=== PATIENT | male | born 1945 | race Caucasian/White ===

== ENCOUNTER 2017-07-23 18:16 | Inpatient (IN) ==
[2017-07-23] MEDS ORDERED: Acetaminophen 325 MG TABLET PO PRN (22:52)
--- NOTE | 2017-07-23 23:04 | Internal Med History&Physical ---
Date of Encounter: 07/23/17 Time of Encounter: 22:00 Assessment and Plan (1) CAD (coronary artery disease) Current visit: Yes Status: Acute Stable, no chest pain, s/p stent. Qualifiers: Coronary Disease-Associated Artery/Lesion type: [place] artery [place] vs. transplanted heart: [place] heart Associated angina: without angina Qualified Code(s): I25.10 - Atherosclerotic heart disease of [place] coronary artery without angina pectoris (2) DVT prophylaxis Current visit: Yes Status: Acute Heparin SC. (3) Carbon monoxide poisoning Current visit: No Status: Acute Will place pt on high flow O2 mask and check Carboxyhemoglobin in AM. Pt is AAO x3, no neuro deficits now. Qualifiers: Encounter type: initial encounter Injury intent: accidental or unintentional Qualified Code(s): T58.91XA - Toxic effect of carbon monoxide from unspecified source, accidental (unintentional), initial encounter (4) Syncope Current visit: No Status: Acute Etiology is undetermined. - Chech Flu test to r/o flu. - Continuous cardiac monitoring to r/o arrhythmia. - Echo and duplex carotid. - Orthostatic vitals. Qualifiers: Syncope type: unspecified Qualified Code(s): R55 - Syncope and collapse Internal Medicine - H&P: HPI Chief complaint: syncope Admitted From: Home Plans for Post Hospital Care: Home History of present illness: Mr. Ballard is a 72 year old male with Hx of CAD s/p stent transferred from [place] [facility] for syncope. Pt said he doesn't feels good in recent several days. He has runny nose, mild nonproductive cough. No fever. He has lightheaded and dizziness as well. This morning, when he getup to drink water, he felt dizziness and passed out. He quickly wake up and get up from floor. Denies head/ neck injury or other body injury. Pt use gas heating because he feels cold. Pt walked around two miles to ER and had workup. Head CT unremarkable. CXR and EKG unremarkable. Pt was found mild elevated carboxyhemoglobin at 5.4%. He was considered CO intoxicity and hyperbarric O2 physician was consulted by [facility], no indication for hyperbaric therapy per consult. Pt was tranferred to our hospital for syncope. Pt denies chest pain, SOB, or nausea when I saw him. Past Med Surg Social Fam HX - Past Medical History Medical history: myocardial infarction Psychiatric history: no psych history - Social History Smoking Status: Never smoker Smokeless Tobacco Status: No Alcohol use: none Drug use: none - Family History Father Living Status: Hx Family Cardiac Disorders: Yes (heart attack) Internal Medicine - H&P: Meds No Known Home Drugs 07/23/17 [History] 3 Allergy/AdvReac Type Severity Reaction Status Date / Time No Known Allergies Allergy Verified 07/23/17 13:11 All Systems PM: A 10-system review of systems was performed and is negative for pertinent findings except as documented above in the HPI. - Constitutional Vitals: Temp Pulse Resp BP Pulse Ox 98.6 F 70 18 150/88 97 07/23/17 20:31 07/23/17 20:31 07/23/17 20:31 07/23/17 20:31 07/23/17 20:31 General appearance: Present: A&O X 3, no acute distress, answers questions appropriately - Head Head exam: Present: atraumatic, normocephalic - Eye Eye exam: Present: PERRL, conjuntiva pink, sclera anicteric Pupils: Present: PERRL - Neck Neck exam general surgery: Present: supple, trachea midline. Absent: lymphadenopathy - Respiratory Respiratory exam: Present: CTAB. Absent: accessory muscle use, rales, rhonchi, wheezes - Cardiovascular Cardiovascular exam: Present: RRR, +S1, +S2. Absent: diastolic murmur, gallop, rubs, systolic murmur - GI/Abdominal GI/Abdominal exam: Present: normal bowel sounds, soft, no peritoneal signs. Absent: distended, tenderness - Extremities Exam Extremities exam: Present: warm, radial pulses palpable and symmetrical. Absent : calf tenderness, cyanotic, pedal edema - Neurological Exam Neurological exam: Present: CN II-XII intact, oriented X3, no focal deficits. Absent: pronater drift, facial droop, speech deficit - Skin Skin exam: Present: dry, intact Internal Med - H&P Results - EKG Data -: EKG Interpreted by Myself EKG shows normal: sinus rhythm Rate: normal
[2017-07-24] MEDS: *HR* Heparin 5,000 UNIT/ML VIAL SQ SCH (05:21)
[2017-07-24 05:48] LABS: Basophils % 0.6 %; Eosinophils # 0.1 K/mcL (0.0-0.6); Eosinophils % 2.2 %; Hematocrit 40.7 % (37.5-50.1); Immature Granulocytes % 0.9 % (0-4); Lymphocytes # 1.6 K/mcL (0.6-4.6); Lymphocytes % 30.2 %; Mean Corpuscular HGB Conc 34.4 g/dL (31.6-35.5); Mean Corpuscular Hemoglobin 31.3 pg (28.0-33.3); Mean Corpuscular Volume 90.8 fL (83.0-100.0); Mean Platelet Volume 9.3 fL (9.4-12.4); Monocytes # 0.5 K/mcL (0.0-1.3); Monocytes % 9.1 %; Neutrophils # 3.1 K/mcL (1.6-8.9); Platelet Count 170 K/mcL (140-400); Red Blood Count 4.48 M/mcL (4.19-5.50); Red Cell Distribution Width 12.3 % (11.5-14.5)
[2017-07-24 06:12] LABS: BUN/Creatinine Ratio 12 (6-26); Blood Urea Nitrogen 12 mg/dL (8-23); Calcium 9.1 mg/dL (8.6-10.3); Carbon Dioxide 26 mEq/L (23-29); Chloride 110 mEq/L (98-107); Glucose 91 mg/dL (70-105); Osmolality,Calculated 291 (280-300); Potassium 4.1 mEq/L (3.5-5.1); Sodium 141 mEq/L (136-145); eGFR For African Americans > 60 (> 60); eGFR For Non-African Americans > 60 (> 60)
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
[2017-07-25] MEDS: *HR* Heparin 5,000 UNIT/ML VIAL SQ SCH ×3 (06:10→19:52)
--- NOTE | 2017-07-25 13:04 | Internal Med Progress Note ---
Date of Encounter: 07/25/17 Time of Encounter: 09:45 - Assessment and plan (1) Carbon monoxide poisoning Current Visit: Yes Status: Acute Assessment and plan: suspected. Presented after syncopal episode. Patient reports using homemade kerosene heaters/lamps as heat source. OSH head CT non-acute. Bilateral carotids as noted below. OSH Carboxyhemoglobin level 5.4. After high flow oxygen overnight, Carboxyhemoglobin down to 1.9. This may have contributed to syncopal episode. Orthostatic BPs ordered Qualifiers: Encounter type: initial encounter Injury intent: accidental or unintentional Qualified Code(s): T58.91XA - Toxic effect of carbon monoxide from unspecified source, accidental (unintentional), initial encounter (2) PTSD (post-traumatic stress disorder) Current Visit: Yes Status: Chronic Assessment and plan: per hx; reports vivid flashbacks that required mental health hospitalization in the past. Appears paranoid and consumed with thoughts of a 9-year-old boy in his brother poisoning his well by contaminating with animals and human waste. Does not follow with psychiatry outpatient. Not on any psychiatric, antidepressants, anti-anxiety or mood stabilizing medications. Psychiatry consulted (3) CAD (coronary artery disease) Current Visit: Yes Status: Acute Assessment and plan: per hx. Patient reports remote PCI. Not on ASA at home. Denies CP. Start ASA, lipid panel, Hgb A1c pending Qualifiers: Coronary Disease-Associated Artery/Lesion type: [place] artery [place] vs. transplanted heart: [place] heart Associated angina: without angina Qualified Code(s): I25.10 - Atherosclerotic heart disease of [place] coronary artery without angina pectoris (4) DVT prophylaxis Current Visit: Yes Status: Acute Assessment and plan: heparin - Subjective Interval history: Seen and examined at bedside, patient is new to me. Information obtained from chart review and patient report. Patient says he feels better; still a little lightheaded and dizzy at times but overall better. He says he does not have gas , heat or running water at his apartment. He also expresses concern over that he is being poisoned. Does not feel safe going home but says he has no choice. - Constitutional Vitals: Temp Pulse Resp BP Pulse Ox 97.5 F L 80 18 107/68 94 07/25/17 10:47 07/25/17 10:47 07/25/17 10:47 07/25/17 10:47 07/25/17 10:47 General appearance: Present: cooperative, A&O X 3, pleasant, no acute distress, answers questions appropriately - Head Head exam: Present: atraumatic, normocephalic - Eye Eye exam: Present: PERRL, conjuntiva pink, sclera anicteric Pupils: Present: PERRL - Neck Neck exam general surgery: Present: supple, trachea midline. Absent: lymphadenopathy - Respiratory Respiratory exam: Present: CTAB. Absent: accessory muscle use, rales, rhonchi, wheezes - Cardiovascular Cardiovascular exam: Present: RRR, +S1, +S2. Absent: diastolic murmur, gallop, rubs, systolic murmur - GI/Abdominal GI/Abdominal exam: Present: normal bowel sounds, soft, no peritoneal signs. Absent: distended, tenderness - Extremities Exam Extremities exam: Present: warm, radial pulses palpable and symmetrical. Absent : calf tenderness, cyanotic, pedal edema - Neurological Exam Neurological exam: Present: CN II-XII intact, oriented X3, no focal deficits. Absent: pronater drift, facial droop, speech deficit - Skin Skin exam: Present: dry, intact Internal Medicine: Result - Labs CBC & Chem 7: 07/24/17 05:32 07/24/17 05:32 Consult Discharge Plan - Plan [facility]errals: [facility] [Primary Care Provider] -
[2017-07-25] MEDS: Aspirin 81 MG TAB.CHEW PO SCH (19:52)
[2017-07-26] MEDS: *HR* Heparin 5,000 UNIT/ML VIAL SQ SCH ×2 (05:31→17:22)
[2017-07-26 05:58] LABS: Chol/HDL Ratio 4.7 (0-4.9)
[2017-07-26] MEDS: Aspirin 81 MG TAB.CHEW PO SCH (09:17)
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
[2017-07-27] MEDS: *HR* Heparin 5,000 UNIT/ML VIAL SQ SCH ×2 (05:52→17:59)
[2017-07-27] MEDS: Aspirin 81 MG TAB.CHEW PO SCH (09:47)
--- NOTE | 2017-07-27 12:43 | Consult Note ---
Date of Encounter: 07/27/17 Time of Encounter: 10:30 Assessment & Recommendation (1) Schizophrenia Current visit: Yes Status: Acute Assessment & Recommendation: Patient was uncooperative in being able to get a full detailed assessment. From what he did tell me, he has paranoid thoughts about his neighbors and that they are defecating and throwing animals in his well in an attempt to poison him to take his land. He has never seen anyone do this, but has found opossums and ground hogs in his well, and also has feces floating on the top of the well water. He refused to sign paperwork to get [facility]. He refused to sign paperwork to contact his sons or other family members for collateral information. He has refused to sign all paperwork for the treatment team of physicians. Schizophrenia, paranoid type would be a RULE OUT diagnosis till further information could be gathered. History of Present Illness Patient: new to practice Requesting Physician: Darlene Birmingham CNP Reason for consult: Paranoia History of present illness: Mr. Ballard is a 72 year old male that psychiatric services was requested to consult on secondary to his paranoia non-cooperativeness with his medical treatment team. I initially stopped by to consult on the patient on July 26. When I knocked on the door and entered his room, he was sitting in a side chair with a towel wrapped around him. I apologize for disturbing him. He stated it was fine, that he had just finished getting out of the shower and was drying off and trying to cool off. I told him I would come back. I returned approximately an hour and a half later. He was still sitting in the chair with the towel wrapped around himself. Nursing told me that they had encouraged him to get dressed, and if not to at least close the door. (He had the door open previously, walking around only in his underwear.) I told him I would check in with him some other time after I explained who I was and why I was there to see him. When I followed up the next day, I sat down and started talking to him further about his career and history. 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 He told me that he received an honorable discharge. He had told me the previous day that he had received mental health services through the after the war to talk and process things; PTSD. No other mental health treatment. I asked him about the statement that he had made to one of his treatment team clinicians about his neighbors trying to poison him and his brother breaking into his house and stealing from him. He explained to me that everybody wanted his land it was. There was some of the most beautiful land and [facility] had use for miles around. He states that his neighbors are trying to poison him because he would not sell it to them. He stated they he had been offered between $70,000 to $125 ,000 for his land and that he had turned him down. He told me that they put possums and groundhogs and then "take a crap in well" in an attempt to poison him. "they are trying to poison me to get me off my land." When I asked him if he had ever seen anybody do that, he stated "now, I do not have to see them to know what they are doing". As I started to ask him another question, he told me that "You did not start out on a good note with me. We are done here." I started to ask him another question or why he thought that I was offensive, and he said nothing further. He just watched his television. I thanked him for his time and I left CC: Darlene Birmingham, MIKE Past Med Surg Social Fam HX - Past Medical History Medical history: myocardial infarction - Past Psychiatric History Psychiatric history: Reports: PTSD, other (Patient told me [facility] Family psychiatric history: Unknown Family History of Suicide: Unknown - Social History Smoking Status: Never smoker Smokeless Tobacco Status: No Alcohol use: none Drug use: none Occupational status: previously employed Current living situation: Home - Independent Activity Level: Independent ambulation Recent Out of Country Travel Within the Last 8 Weeks: No Exposure or Possible Exposure to Illness During Travel: No - Family History Father Living Status: Hx Family Cardiac Disorders: Yes (heart attack) Medications & Allergies No Known Home Drugs 07/23/17 [History] 3 Allergy/AdvReac Type Severity Reaction Status Date / Time No Known Allergies Allergy Verified 07/23/17 13:11 Mental Status Exam Patient orientation: Yes Person, Yes Time, Yes Place Level of alertness: Alert Patient appearance: Well-nourished Additional observations: Nursing reported that he walks around his room in his underwear and nothing else as the door is open. When I first went to talk to him, he was sitting in a chair to the side of his bed with only a towel wrapped around him. He told me he had just taken a shower and was drying off. I told him I would be back later. I returned 1.5 hours later and he was still sitting in the chair with the towel wrapped around him and no other clothing on. Behavior: nervous, uncooperative, guarded, suspicious Psychomotor activity: Normal Eye contact: Maintains Eye Contact Mood description: Anxious Affect description: constricted Speech pattern: Normal rate, Normal rhythm, Normal tone Speech volume: Normal, Loud (loud volume when I started asking about his previous mental health treatemtn and history) Thought process: Evasive Thought content: Yes Preoccupation, Yes Paranoid delusion Attention span: Capable of Focused Attention Memory description: Grossly Intact (Unable to test fully but when he answered a question, he did not appear to struggle thinkng of the response.) Patient reliability: Not Reliable Historian Intelligence estimate: Average Judgment: Poor Insight: Minimal Results - Vital Signs Vital signs: Temp Pulse Resp BP Pulse Ox 99.1 F 99 18 135/82 92 07/27/17 11:34 07/27/17 11:34 07/27/17 11:34 07/27/17 11:34 07/27/17 11:34 - Labs Labs: Laboratory Last Values WBC 5.4 K/mcL (4.3-11.1) 07/24/17 05:32 RBC 4.48 M/mcL (4.19-5.50) 07/24/17 05:32 Hgb 14.0 g/dL (12.9-16.9) 07/24/17 05:32 Hct 40.7 % (37.5-50.1) 07/24/17 05:32 MCV 90.8 fL (83.0-100.0) 07/24/17 05:32 MCH 31.3 pg (28.0-33.3) 07/24/17 05:32 MCHC 34.4 g/dL (31.6-35.5) 07/24/17 05:32 RDW 12.3 % (11.5-14.5) 07/24/17 05:32 Plt Count 170 K/mcL (140-400) 07/24/17 05:32 MPV 9.3 fL (9.4-12.4) L 07/24/17 05:32 Immature Gran % 0.9 % (0-4) 07/24/17 05:32 Seg Neutrophils % 57.0 % 07/24/17 05:32 Lymphocytes % 30.2 % 07/24/17 05:32 Monocytes % 9.1 % 07/24/17 05:32 Eosinophils % 2.2 % 07/24/17 05:32 Basophils % 0.6 % 07/24/17 05:32 Neutrophils # 3.1 K/mcL (1.6-8.9) 07/24/17 05:32 Lymphocytes # 1.6 K/mcL (0.6-4.6) 07/24/17 05:32 Monocytes # 0.5 K/mcL (0.0-1.3) 07/24/17 05:32 Eosinophils # 0.1 K/mcL (0.0-0.6) 07/24/17 05:32 Basophils # 0.0 K/mcL (0.0-0.2) 07/24/17 05:32 Carboxyhemoglobin 1.9 % (0-5) 07/24/17 05:32 Sodium 141 mEq/L (136-145) 07/24/17 05:32 Potassium 4.1 mEq/L (3.5-5.1) 07/24/17 05:32 Chloride 110 mEq/L (98-107) H 07/24/17 05:32 Carbon Dioxide 26 mEq/L (23-29) 07/24/17 05:32 BUN 12 mg/dL (8-23) 07/24/17 05:32 Creatinine 1.02 mg/dL (0.70-1.30) 07/24/17 05:32 Est GFR ( Amer) > 60 (> 60) 07/24/17 05:32 Est GFR (Non-Af Amer) > 60 (> 60) 07/24/17 05:32 BUN/Creatinine Ratio 12 (6-26) 07/24/17 05:32 Glucose 91 mg/dL (70-105) 07/24/17 05:32 POC Glucose 128 (58-89) H 07/26/17 20:28 Est Mean Plasma Glucose 97 mg/dl 07/26/17 03:31 Hemoglobin A1c 5.0 % (-5.6) 07/26/17 03:31 Calculated Osmolality 291 (280-300) 07/24/17 05:32 Calcium 9.1 mg/dL (8.6-10.3) 07/24/17 05:32 Magnesium 2.0 mg/dL (1.6-2.6) 07/24/17 05:32 Triglycerides 88 mg/dL (< 150) 07/26/17 03:31 Cholesterol 146 mg/dL (< 200) 07/26/17 03:31 LDL Cholesterol, Calc 97 mg/dL (0-99) 07/26/17 03:31 VLDL Cholesterol, Calc 18 mg/dL (< 31) 07/26/17 03:31 HDL Cholesterol 31 mg/dL (40-59) L 07/26/17 03:31 Cholesterol/HDL Ratio 4.7 (0-4.9) 07/26/17 03:31 Consult Discharge Plan - Plan Additional Instructions: I would [facility] and treat as they are able to. Referrals: [facility],PC[facility] [Primary Care Provider] -
[2017-07-27 13:28] LABS: Amphetamine Screen,Urine Negative ng/mL (Cutoff=1000); Barbiturate Screen,Urine Negative ng/mL (Cutoff=200); Benzodiazepines Screen,Urine Negative ng/mL (Cutoff=200); Cannabinoid Screen,Urine Negative ng/mL (Cutoff = 50); Cocaine Screen,Urine Negative ng/mL (Cutoff= 300); Opiate Screen,Urine Negative ng/mL (Cutoff=300); Phencyclidine Screen,Urine Negative ng/mL (Cutoff=25)
--- NOTE | 2017-07-27 14:43 | Internal Med Progress Note ---
Date of Encounter: 07/27/17 Time of Encounter: 12:00 - Assessment and plan (1) PTSD (post-traumatic stress disorder) Current Visit: Yes Status: Chronic Assessment and plan: per hx; reports vivid flashbacks that required mental health hospitalization in the past. Appears paranoid and consumed with thoughts of a 10-year-old boy in his brother poisoning his well by contaminating with animals and human waste. Does not follow with psychiatry outpatient. Not on any psychiatric, antidepressants, anti-anxiety or mood stabilizing medications. Evaluated by psychiatry who suspects possible paranoid schizophrenia, however difficult to assess as patient is refusing to sign release of records for [facility] and refusing to allow staff to contact family members collateral information. Discussed case with psychiatry on 07/27/17 and at this time it is recommended that patient be transferred to be a if he is agreeable for further inpatient psychiatric workup and treatment. Patient is agreeable to transfer at this time. 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 Presented after syncopal episode. Patient reports using homemade kerosene heaters/lamps as heat source. OSH head CT non-acute. Bilateral carotids as noted below. OSH Carboxyhemoglobin level 5.4. After high flow oxygen overnight, Carboxyhemoglobin down to 1.9. This may have contributed to syncopal episode. Orthostatic BPs ordered Qualifiers: Encounter type: initial encounter Injury intent: accidental or unintentional Qualified Code(s): T58.91XA - Toxic effect of carbon monoxide from unspecified source, accidental (unintentional), initial encounter (3) CAD (coronary artery disease) Current Visit: Yes Status: Acute Assessment and plan: per hx. Patient reports remote PCI. Not on ASA at home. LDL 97, Hgb A1c 5%. Start ASA Qualifiers: Coronary Disease-Associated Artery/Lesion type: [place] artery [place] vs. transplanted heart: [place] heart Associated angina: without angina Qualified Code(s): I25.10 - Atherosclerotic heart disease of [place] coronary artery without angina pectoris (4) DVT prophylaxis Current Visit: Yes Status: Acute Assessment and plan: heparin - Subjective Interval history: Seen and examined at bedside. Says he had an uneventful night reports episode of dizziness this morning upon standing. No chest pain or shortness of breath. Discussed with him the possibility of transferring to the [facility] and patient is agreeable. He is reluctant to provide much information to [facility] staff however [facility]. Discussion with social services analyst and transfer initiated. - Constitutional Vitals: Temp Pulse Resp BP Pulse Ox 99.1 F 99 18 135/82 92 07/27/17 11:34 07/27/17 11:34 07/27/17 11:34 07/27/17 11:34 07/27/17 11:34 General appearance: Present: cooperative, A&O X 3, pleasant, no acute distress, answers questions appropriately - Head Head exam: Present: atraumatic, normocephalic - Eye Eye exam: Present: PERRL, conjuntiva pink, sclera anicteric Pupils: Present: PERRL - Neck Neck exam general surgery: Present: supple, trachea midline. Absent: lymphadenopathy - Respiratory Respiratory exam: Present: CTAB. Absent: accessory muscle use, rales, rhonchi, wheezes - Cardiovascular Cardiovascular exam: Present: RRR, +S1, +S2. Absent: diastolic murmur, gallop, rubs, systolic murmur - GI/Abdominal GI/Abdominal exam: Present: normal bowel sounds, soft, no peritoneal signs. Absent: distended, tenderness - Extremities Exam Extremities exam: Present: warm, radial pulses palpable and symmetrical. Absent : calf tenderness, cyanotic, pedal edema - Neurological Exam Neurological exam: Present: CN II-XII intact, oriented X3, no focal deficits. Absent: pronater drift, facial droop, speech deficit - Skin Skin exam: Present: dry, intact Internal Medicine: Result - Labs CBC & Chem 7: 07/24/17 05:32 07/24/17 05:32 Consult Discharge Plan - Plan Additional Instructions: I would recommend further follow up through the [facility] to evaluate further and treat as they are able to. [facility]errals: [facility] [Primary Care Provider] -
[2017-07-27 15:06] VITALS: BP 126/71
--- NOTE | 2017-08-06 17:36 | Discharge Summary ---
Date of Encounter: 07/28/17 Time of Encounter: 17:00 - Discharge Diagnosis (1) PTSD (post-traumatic stress disorder) Priority: Primary Status: Acute Comments: per hx; reports vivid flashbacks that required mental health hospitalization in the past. Appears paranoid and consumed with thoughts of a 10-year-old boy in his brother poisoning his well by contaminating with animals and human waste. Does not follow with psychiatry outpatient. Not on any psychiatric, antidepressants, anti-anxiety or mood stabilizing medications. Evaluated by psychiatry who suspects possible paranoid schizophrenia, however difficult to assess as patient is refusing to sign release of records for [facility] and refusing to allow staff to contact family members collateral information. Discussed case with psychiatry on 07/27/17 and at this time it is recommended that patient be transferred to be a if he is agreeable for further inpatient psychiatric workup and treatment. [facility] (2) Carbon monoxide poisoning Priority: Primary Status: Resolved Comments: suspected. Presented after syncopal episode. Patient reports using homemade kerosene heaters/lamps as heat source. OSH head CT non-acute. Bilateral carotids as noted below. OSH Carboxyhemoglobin level 5.4. After high flow oxygen overnight, Carboxyhemoglobin down to 1.9. This may have contributed to syncopal episode. No sx recurrence while inpatient Qualifiers: Encounter type: initial encounter Injury intent: accidental or unintentional Qualified Code(s): T58.91XA - Toxic effect of carbon monoxide from unspecified source, accidental (unintentional), initial encounter (3) CAD (coronary artery disease) Priority: Secondary Status: Chronic Comments: per hx. Patient reports remote PCI. Not on ASA at home. LDL 97, Hgb A1c 5%. Start ASA Qualifiers: Coronary Disease-Associated Artery/Lesion type: [place] artery [place] vs. transplanted heart: [place] heart Associated angina: without angina Qualified Code(s): I25.10 - Atherosclerotic heart disease of [place] coronary artery without angina pectoris - Discharge Medications Home Medications: No Known Home Drugs 07/23/17 [History] Allergies/Adverse Reactions: 3 Allergy/AdvReac Type Severity Reaction Status Date / Time No Known Allergies Allergy Verified 07/23/17 13:11 Date of admission: 07/25/17 13:24 [facility] Consults: 07/24/17 15:44 Consult to Psychiatry [CONS] Routine Consulting Provider: Haydee Booth Reason for Consult: Paranoia- pt believes that he is being poisoned by his brother and/or a 9 year old boy. States they are throwing animals and human waste in his well and that his brother breaks into his house to steal things when he is not home. Recommendations for medication/placement, please. Time Notified: 15:46 Call Completed: Yes 07/24/17 18:00 Consult to Communications Scientist [CONS] Routine Reason for SW Consult: Please follow in anticipation of possible discharge needs. Discharging clinician: Valeria Terrell Anticipated date of discharge: 07/28/17 - Patient Status Disposition: Transfer Psychiatric Hosp Condition: Good Functional capacity at discharge: independent ambulation Overall status at discharge: patient is progressing back to baseline - Discharge Instructions [facility] With: [facility] Care Provider[facility] - Additional Instructions: I would recommend further follow up through the [facility] to evaluate further and treat as they are able to. - Diet and Activity Activity: increase activity as tolerated Diet: advance to your usual diet Interval History: See 07/28/17 progress note for interval hx. Patient was transferred to [facility] Hospital course: See assessment and plan for hospital course - Time Spent with Patient Total time spent providing and/or coordinating discharge services: Less than 30 minutes - Constitutional Vitals: Temp Pulse Resp BP Pulse Ox 98.6 F 76 18 126/71 98 07/27/17 15:05 07/27/17 15:05 07/27/17 15:05 07/27/17 15:05 07/27/17 15:05 General appearance: Present: cooperative, A&O X 3, pleasant, no acute distress, answers questions appropriately - Head Head exam: Present: atraumatic, normocephalic - Eye Eye exam: Present: PERRL, conjuntiva pink, sclera anicteric Pupils: Present: PERRL - Neck Neck exam general surgery: Present: supple, trachea midline. Absent: lymphadenopathy - Respiratory Respiratory exam: Present: CTAB. Absent: accessory muscle use, rales, rhonchi, wheezes - Cardiovascular Cardiovascular exam: Present: RRR, +S1, +S2. Absent: diastolic murmur, gallop, rubs, systolic murmur - GI/Abdominal GI/Abdominal exam: Present: normal bowel sounds, soft, no peritoneal signs. Absent: distended, tenderness - Extremities Exam Extremities exam: Present: warm, radial pulses palpable and symmetrical. Absent : calf tenderness, cyanotic, pedal edema - Neurological Exam Neurological exam: Present: CN II-XII intact, oriented X3, no focal deficits. Absent: pronater drift, facial droop, speech deficit - Skin Skin exam: Present: dry, intact
== END 2017-07-27 18:48 | DRG 918 ==
LOC: 3BNU → MERGE 07-25 13:24
PROVIDERS: ADMIT Hospitalist; ATTEND Registered Nurse

== ENCOUNTER 2017-12-13 10:32 | Inpatient (IN) ==
--- NOTE | 2017-12-13 10:45 | Emergency Department Note ---
Disposition Clinical Impression: Elevated troponin Chest pain Qualifiers: Chest pain type: unspecified Qualified Code(s): R07.9 - Chest pain, unspecified Disposition: Admitted As Inpatient Condition: Fair Forms: ED Satisfaction Letter Time of Disposition: 11:00 Chest Pain HPI - General Chief Complaint: ED Chest Pain Stated Complaint: CP Time Seen by Provider: 12/13/17 10:37 Source: EMS, other Mode of arrival: EMS Limitations: altered mental status Vital Signs Reviewed: Yes Nursing Notes Reviewed: Yes - History of Present Illness HPI Narrative: 72-year-old male is sent from the [facility] for evaluation after findings of elevated serial troponins. Patient is a very poor historian due to underlying dementia. He was given Aspirin and Nitroglycerin prior to transfer to this facility. Pt complaint: other (elevated troponin) Treatments prior to arrival chest pain: aspirin, nitroglycerin - Related Data Home Medications Medication Instructions Recorded Confirmed No Known Home Drugs 07/23/17 07/24/17 Allergies Allergy/AdvReac Type Severity Reaction Status Date / Time No Known Allergies Allergy Verified 07/23/17 13:11 Review of Systems: Elevated troponin All systems ED: reviewed and negative except as stated. Constitutional: Denies: fever, chills, weakness, weight change Eyes: Denies: eye pain, eye discharge, vision change ENT ED: Denies: ear pain, throat pain, dental pain, hearing loss, epistaxis, congestion, dysphagia Cardiovascular: Reports: as per HPI, chest pain. Denies: palpitations, dyspnea on exertion, edema, syncope Respiratory: Denies: cough, dyspnea, wheezes, hemoptysis, stridor Gastrointestinal: Denies: abdominal pain, nausea, vomiting, diarrhea, constipation, hematemesis, melena, hematochezia Genitourinary: Denies: urgency, dysuria, frequency, hematuria Musculoskeletal: Denies: back pain, neck pain, arthralgia, myalgia Integumentary: Denies: rash, abrasion, lesions Neurological: Denies: headache, weakness, numbness, paresthesias, confusion, abnormal gait, vertigo Psychiatric: Denies: anxiety, depression, suicidal thoughts, homicidal thoughts , auditory hallucinations, visual hallucinations Endocrine: Denies: fatigue Hematological/Lymphatic: Denies: easy bleeding, easy bruising Allergic/Immunologic: Denies: facial swelling, urticaria Chest Pain PMH - Past Medical History Medical history: Reports: myocardial infarction Psychiatric history: Reports: PTSD, other (Patient told me [facility]) - Social History Smoking Status: Never smoker Alcohol use: Reports: none Drug use: Reports: none Physical Exam - General Limitations: altered mental status General appearance: alert, in no apparent distress - Head Head exam: atraumatic, normocephalic, normal inspection - Eye Eye exam: Present: normal appearance, PERRL, EOMI. Absent: nystagmus - ENT ENT exam: mucous membranes moist - Neck Neck exam: Present: normal inspection, full ROM, trachea midline - Chest Chest inspection: Present: normal inspection, symmetric chest wall rise - Respiratory Respiratory exam: Present: normal lung sounds bilaterally. Absent: respiratory distress, wheezes, stridor, accessory muscle use, prolonged expiratory phase - Cardiovascular Cardiovascular exam: Present: regular rate, normal rhythm, normal heart sounds - Abdominal Exam Abdominal exam: Present: soft, Non-Tender, normal bowel sounds - Extremities Exam Extremities exam: Present: normal inspection, full ROM. Absent: tenderness, pedal edema - Neurological Exam Neurological exam: Present: alert - Psychiatric Psychiatric exam: Present: normal mood - Skin Skin exam: Present: warm, dry, intact, normal color. Absent: rash Chest Pain - Medical Records Medical records reviewed: Yes I reviewed the patient's medical records. [place] - Gur[place] Situation: Demographics, MOA Background: Presenting Complaint, Relevant PMH, Meds, & Allergies Assessment: Vital Signs, Course and respsone to treatment, Exam Concerns, Patient/Family Expectation, Pertinant Lab Results, Outstanding Labs Recommendation: Barrier(s) to disposition, Recommendation based on pending studies, treatments, or consults S.[email or web address] Report Given to: Dr. Keira Mackenzie Repor Time: 11:00
[2017-12-13 11:07] LABS: Basophils % 0.3 %; Eosinophils # 0.1 K/mcL (0.0-0.6); Hematocrit 33.3 % (37.5-50.1); Hemoglobin 11.3 g/dL (12.9-16.9); Immature Granulocytes % 0.6 % (0-4); Lymphocytes # 0.8 K/mcL (0.6-4.6); Mean Corpuscular HGB Conc 33.9 g/dL (31.6-35.5); Mean Corpuscular Hemoglobin 31.7 pg (28.0-33.3); Mean Corpuscular Volume 93.3 fL (83.0-100.0); Mean Platelet Volume 9.4 fL (9.4-12.4); Monocytes % 9.4 %; Platelet Count 237 K/mcL (140-400); Red Blood Count 3.57 M/mcL (4.19-5.50); Red Cell Distribution Width 12.7 % (11.5-14.5); Segmented Neutrophils % 81.7 %
--- NOTE | 2017-12-13 11:12 | Emergency Department Note ---
Disposition Clinical Impression: Elevated troponin Chest pain Qualifiers: Chest pain type: unspecified Qualified Code(s): R07.9 - Chest pain, unspecified Disposition: Admitted As Inpatient Condition: Fair [facility]: [facility] Care Provider[facility] - Forms: ED Satisfaction Letter Time of Disposition: 12:25 General Adult HPI - General Chief complaint: ED Chest Pain Stated complaint: CP Time Seen by Provider: 12/13/17 10:37 Source: EMS, other Mode of arrival: EMS Limitations: altered mental status - History of Present Illness Pain Scale: 1 - Related Data Home Medications Medication Instructions Recorded Confirmed No Known Home Drugs 07/23/17 07/24/17 Allergies Allergy/AdvReac Type Severity Reaction Status Date / Time No Known Allergies Allergy Verified 07/23/17 13:11 Constitutional: Denies: fever, chills, weakness, weight change Eyes: Denies: eye pain, eye discharge, vision change ENT ED: Denies: ear pain, throat pain, dental pain, hearing loss, epistaxis, congestion, dysphagia Cardiovascular: Reports: as per HPI, chest pain. Denies: palpitations, dyspnea on exertion, edema, syncope Respiratory: Denies: cough, dyspnea, wheezes, hemoptysis, stridor Gastrointestinal: Denies: abdominal pain, nausea, vomiting, diarrhea, constipation, hematemesis, melena, hematochezia Genitourinary: Denies: urgency, dysuria, frequency, hematuria Musculoskeletal: Denies: back pain, neck pain, arthralgia, myalgia Integumentary: Denies: rash, abrasion, lesions Neurological: Denies: headache, weakness, numbness, paresthesias, confusion, abnormal gait, vertigo Psychiatric: Denies: anxiety, depression, suicidal thoughts, homicidal thoughts , auditory hallucinations, visual hallucinations Endocrine: Denies: fatigue Hematological/Lymphatic: Denies: easy bleeding, easy bruising Allergic/Immunologic: Denies: facial swelling, urticaria Past Medical History - Past Medical History Medical history: Reports: myocardial infarction Psychiatric history: Reports: PTSD, other (Patient told me he had receive services years ago from the [place] for PTSD) - Social History Smoking Status: Never smoker Smokeless Tobacco Status: No Alcohol use: Reports: none Drug use: Reports: none Physical Exam - General Limitations: altered mental status General appearance: alert, in no apparent distress Course - Reevaluation(s) Reevaluation #1: 72-year-old male who was sent here from the [place] does have some underlying dementia difficult historian apparently they thought had a pneumonia yesterday and the troponins ottoman was elevated actually went up yesterday and then went back down and then again today troponins were back up. Chest x-ray here shows no evidence of pneumonia. Patient does not appear to be in distress. Consultation with cardiology will go ahead and admit with start of IV heparin. Time: 12:22 - Consultations Consultation #1: Discussed with , recommends IV heparin and admission to the hospitalist he will see in consult. Time: 12:23 Consultation #2: Discussed with Dr. Manzanares, admit. Time: 12:24 Vital Signs Temperature 99 F 12/13/17 10:42 Pulse Rate 89 12/13/17 10:42 Respiratory Rate 20 12/13/17 10:42 Blood Pressure 111/72 12/13/17 10:42 O2 Sat by Pulse Oximetry 96 12/13/17 10:42 Temperature 99 F 12/13/17 10:42 Pulse Rate 89 12/13/17 10:42 Respiratory Rate 20 12/13/17 10:42 Blood Pressure 111/72 12/13/17 10:42 O2 Sat by Pulse Oximetry 96 12/13/17 10:42 Oxygen Delivery Oxygen Delivery Nasal Cannula Medical Decision Making - Lab Data Result diagrams: 12/13/17 10:48 12/13/17 10:48 Lab Results 12/13/17 12/13/17 12/13/17 Range/Units 10:48 10:48 10:48 WBC 11.1 (4.3-11.1) K/mcL RBC 3.57 L (4.19-5.50) M/mcL Hgb 11.3 L (12.9-16.9) g/dL Hct 33.3 L (37.5-50.1) % MCV 93.3 (83.0-100.0) fL MCH 31.7 (28.0-33.3) pg MCHC 33.9 (31.6-35.5) g/dL RDW 12.7 (11.5-14.5) % Plt Count 237 (140-400) K/mcL MPV 9.4 (9.4-12.4) fL Immature Gran % 0.6 (0-4) % Seg Neutrophils % 81.7 % Lymphocytes % 7.0 % Monocytes % 9.4 % Eosinophils % 1.0 % Basophils % 0.3 % Neutrophils # 9.0 H (1.6-8.9) K/mcL Lymphocytes # 0.8 (0.6-4.6) K/mcL Monocytes # 1.0 (0.0-1.3) K/mcL Eosinophils # 0.1 (0.0-0.6) K/mcL Basophils # 0.0 (0.0-0.2) K/mcL PT 17.6 H (9.4-12.1) Seconds INR 1.6 APTT 31.9 (26.0-36.0) Seconds Sodium (136-145) mEq/L Potassium (3.5-5.1) mEq/L Chloride (98-107) mEq/L Carbon Dioxide (23-29) mEq/L BUN (8-23) mg/dL Creatinine (0.70-1.30) mg/dL Est GFR ( Amer) (> 60) Est GFR (Non-Af Amer) (> 60) BUN/Creatinine Ratio (6-26) Glucose (70-105) mg/dL Calculated Osmolality (280-300) Calcium (8.6-10.3) mg/dL Troponin I (< 0.04) ng/mL B-Natriuretic Peptide 289 H (Less than 100) pg/mL 12/13/17 Range/Units 10:48 WBC (4.3-11.1) K/mcL RBC (4.19-5.50) M/mcL Hgb (12.9-16.9) g/dL Hct (37.5-50.1) % MCV (83.0-100.0) fL MCH (28.0-33.3) pg MCHC (31.6-35.5) g/dL RDW (11.5-14.5) % Plt Count (140-400) K/mcL MPV (9.4-12.4) fL Immature Gran % (0-4) % Seg Neutrophils % % Lymphocytes % % Monocytes % % Eosinophils % % Basophils % % Neutrophils # (1.6-8.9) K/mcL Lymphocytes # (0.6-4.6) K/mcL Monocytes # (0.0-1.3) K/mcL Eosinophils # (0.0-0.6) K/mcL Basophils # (0.0-0.2) K/mcL PT (9.4-12.1) Seconds INR APTT (26.0-36.0) Seconds Sodium 137 (136-145) mEq/L Potassium 4.3 (3.5-5.1) mEq/L Chloride 106 (98-107) mEq/L Carbon Dioxide 24 (23-29) mEq/L BUN 21 (8-23) mg/dL Creatinine 0.74 (0.70-1.30) mg/dL Est GFR ( Amer) > 60 (> 60) Est GFR (Non-Af Amer) > 60 (> 60) BUN/Creatinine Ratio 28 H (6-26) Glucose 107 H (70-105) mg/dL Calculated Osmolality 287 (280-300) Calcium 8.5 L (8.6-10.3) mg/dL Troponin I 0.14 H* (< 0.04) ng/mL B-Natriuretic Peptide (Less than 100) pg/mL Attestation Statement - Attestation Attestation: For this encounter, I have reviewed the LINE PATRO[employer]ER or PA documentation, treatment plan, and medical decision making; and I have had face to face time with this patient. Patient was initially seen by the PA. Patient was an inpatient at the [facility] psychiatric unit started having some respiratory complaints yesterday was diagnosed with pneumonia given antibiotics. Patient then had chest pain troponins were ordered lab work from December 12 shows a white count of 9.8 H&H 11 5 and 35.0 with a platelet count of 229,000 troponin on December 12 was 0.137 at 9:45 AM at 1607 the troponin was 0.154 at 2205 the troponin was 0.09 the troponin was then elevated at 0.152 on December 13. The patient currently does not report active chest pain. EKG did show new T-wave inversions in leads V1 V2 V3 and V4.
[2017-12-13 11:14] LABS: INR 1.6; Prothrombin Time 17.6 Seconds (9.4-12.1)
[2017-12-13 11:16] LABS: Activated Partial Thrombo Time 31.9 Seconds (26.0-36.0)
[2017-12-13] MEDS ORDERED: *HR* Heparin 5,000 UNIT/ML VIAL IVP ONE (11:17)
[2017-12-13] MEDS ORDERED: *HR* Heparin 5,000 UNIT/ML VIAL IVP PRN (11:17)
[2017-12-13 11:26] LABS: BUN/Creatinine Ratio 28 (6-26); Blood Urea Nitrogen 21 mg/dL (8-23); Calcium 8.5 mg/dL (8.6-10.3); Carbon Dioxide 24 mEq/L (23-29); Chloride 106 mEq/L (98-107); Glucose 107 mg/dL (70-105); Osmolality,Calculated 287 (280-300); Potassium 4.3 mEq/L (3.5-5.1); Sodium 137 mEq/L (136-145); eGFR For African Americans > 60 (> 60); eGFR For Non-African Americans > 60 (> 60)
[2017-12-13 11:30] LABS: Troponin I 0.14 ng/mL (< 0.04)
[2017-12-13 12:18] LABS: Bilirubin,Urine Small (Negative); Blood,Urine Negative (Negative); Clarity,Urine Clear (Clear); Color,Urine Dark Yellow (Yellow); Glucose,Urine (UA) Normal (Normal); Ketones,Urine 40 mg/dL (Negative); Leukocyte Esterase,Urine Negative (Negative); Nitrite,Urine Negative (Negative); Protein,Urine Trace mg/dL (Neg-Trace); Specific Gravity,Urine > 1.030 (1.010-1.025)
[2017-12-13 12:20] LABS: Bacteria,Urine None Seen per hpf (None-Few); Hyaline Casts,Urine None Seen per lpf (None-Few); RBC,Urine 0-3 per hpf (0-3); Squamous Epithelial Cell,Urine Many per lpf (None-Few); WBC,Urine 0-3 per hpf (0-3)
[2017-12-13] MEDS: Heparin 25,000 UNIT/500 ML D5W 25,000 UNIT/500 ML BAG IVC SCH (12:44)
[2017-12-13] MEDS ORDERED: Acetaminophen 325 MG TABLET PO PRN (13:21)
[2017-12-13] MEDS ORDERED: Cefepime HCl 1,000 MG in D5% in Water (Mini-Bag+) 100 ML IVPB SCH (13:21)
[2017-12-13] MEDS ORDERED: Nitroglycerin 0.4 MG TAB.SUBL SL PRN (13:21)
[2017-12-13] MEDS ORDERED: traZODone 50 MG TABLET PO PRN (13:22)
[2017-12-13] MEDS ORDERED: Naloxone 0.4 MG/ML INJ IVP PRN (13:24)
[2017-12-13] MEDS ORDERED: OXYCODONE Oral CONC 10 MG/0.5 ML ORAL.SYG SL PRN (13:24)
[2017-12-13] MEDS ORDERED: 0.9 % Sodium Chloride 1,000 ML IVC SCH (13:30)
--- NOTE | 2017-12-13 13:32 | Internal Med History&Physical ---
Date of Encounter: 12/13/17 Time of Encounter: 13:30 Internal Medicine - H&P: HPI Chief complaint: Chest pain Admitted From: Emergency Dept History of present illness: Mr. Ballard is a 72 year old male with a past medical history of CAD status post stents, PTSD, CO2 poisoning, transferred from the [place] psych unit as he started complaining of chest pain, at the [place] the first troponin was 1.37, the second one was 1.5 for which he was sent here and his troponin is 0.14. He is denying any chest pain at the moment he is a very poor historian, was given aspirin and nitroglycerin at the [place]. The chest x-ray over here showed a small left pleural effusion and the report from the [place] reads also a left lower lobe opacity concerning for pneumonia, the patient is coughing but no phlegm was described although he is again a very poor historian. BNP is 289, the emergency room physician spoke with cardiology and heparin drip was recommended. Past Med Surg Social Fam HX - Past Medical History Medical history: myocardial infarction, other (PTSD, CO2 poisoning, CAD status post stents, hyperlipidemia, mild diastolic dysfunction with an last ejection fraction of 55-60% measured on July of this year, polyneuropathy, paranoia, syncopal episodes) Additional medical history: paranoid personality disorder, neuropathy, dementia with behavioral distrubances Psychiatric history: PTSD, other (Patient told me he had receive services years ago from the [place] for PTSD) - Past Surgical History Surgical History: other (Prior PCI) Additional surgical history: abd sx from tree injury - Social History Smoking Status: Former smoker Packs per day: Quit smoking many years ago Smokeless Tobacco Status: No Alcohol use: none Drug use: none - Family History Father Living Status: Hx Family Cardiac Disorders: Yes (heart attack) - Additional Family History Additional family history: Father with ID Internal Medicine - H&P: Meds Acetaminophen [Non-Aspirin] 325 mg PO Q8H PRN 12/13/17 [History] Aspirin Enteric Coated [Aspirin EC] 81 mg PO DAILY 12/13/17 [History] Atorvastatin [Lipitor] 40 mg PO HS 12/13/17 [History] Cholecalciferol (D-3) [Vitamin D] 2,000 unit PO DAILY 12/13/17 [History] Divalproex (24 HR) [Depakote ER (24 HR)] 500 mg PO HS 12/13/17 [History] Donepezil [Aricept] 5 mg PO HS 12/13/17 [History] Mag Hydrox/Al Hydrox/Simeth [Antacid II-Simethicone Liq] 30 ml PO Q6H PRN [History] Meclizine HCl [Verticalm] 25 mg PO BID PRN 12/13/17 [History] Melatonin [Melatin] 9 mg PO HS 12/13/17 [History] Naproxen [Naprosyn] 500 mg PO BID 12/13/17 [History] Trazodone HCl 25 mg PO HS PRN 12/13/17 [History] risperiDONE [Risperidone] 1 mg PO HS 12/13/17 [History] 3 Allergy/AdvReac Type Severity Reaction Status Date / Time No Known Allergies Allergy Verified 07/23/17 13:11 All Systems PM: A 10-system review of systems was performed and is negative for pertinent findings except as documented above in the HPI. Review of systems: The patient has dementia, is oriented but refuses to answer a few questions, unable to complete review of systems - Constitutional Vitals: Temp Pulse Resp BP Pulse Ox 99 F 89 18 112/73 96 12/13/17 10:42 12/13/17 12:36 12/13/17 12:36 12/13/17 12:36 12/13/17 12:36 General appearance: Present: A&O X 3 - Head Head exam: Present: atraumatic, normocephalic - Eye Eye exam: Present: PERRL, conjuntiva pink, sclera anicteric Pupils: Present: PERRL - Neck Neck exam general surgery: Present: supple, trachea midline. Absent: lymphadenopathy - Respiratory Respiratory exam: Present: CTAB. Absent: accessory muscle use, rales, rhonchi, wheezes - Cardiovascular Cardiovascular exam: Present: RRR, +S1, +S2. Absent: diastolic murmur, gallop, rubs, systolic murmur - GI/Abdominal GI/Abdominal exam: Present: normal bowel sounds, soft, no peritoneal signs. Absent: distended, tenderness - Extremities Exam Extremities exam: Present: warm, radial pulses palpable and symmetrical. Absent : calf tenderness, cyanotic, pedal edema - Neurological Exam Neurological exam: Present: CN II-XII intact, oriented X3, no focal deficits. Absent: pronater drift, facial droop, speech deficit Additional comments: Flat affect - Skin Skin exam: Present: dry, intact Internal Med - H&P Results - Labs CBC & Chem 7: 12/13/17 10:48 12/13/17 10:48 - Assessment and plan (1) Non-STEMI (non-ST elevated myocardial infarction) Current Visit: Yes Status: Acute Assessment and plan: Continue heparin drip Aspirin, nitroglycerin as needed, start Lopressor, continue atorvastatin Order lipid panel follow troponins, telemetry Cardiology was consulted EKG shows new T-wave inversions from V2 to V5 Omeprazole for GI prophylaxis and heparin drip for DVT prophylaxis. The patient will be admitted as inpatient, expected to stay more than 2 midnights. Full code. Time spent on this admission 40 minutes (2) HCAP (healthcare-associated pneumonia) Current Visit: Yes Status: Acute Assessment and plan: pneumonia present upon admission *Cefepime and Levaquin IV Blood cultures IV fluids (3) Hyperlipidemia Current Visit: Yes Status: Acute Qualifiers: Hyperlipidemia type: unspecified Qualified Code(s): E78.5 - Hyperlipidemia , unspecified (4) PTSD (post-traumatic stress disorder) Current Visit: No Status: Acute (5) Schizophrenia Current Visit: No Status: Acute Qualifiers: Schizophrenia type: paranoid schizophrenia Qualified Code(s): F20.0 - Paranoid schizophrenia - Time Spent With Patient Total time spent is greater than 50% in coordination of care (as documented) at patient's floor/unit and/or counseling patient:
--- NOTE | 2017-12-13 15:06 | Cardiology Consult Note ---
Date of Encounter: 12/13/17 Time of Encounter: 15:01 Assessment and Plan (1) Non-STEMI (non-ST elevated myocardial infarction) Current Visit: Yes Status: Acute EKG changes and elevated trops (downtrending [facility] to [facility]) with hx of STENTS in the past. Cathlab made aware of EKG changes. Patient will be made NPO. Discussion w patient/family: The assessment and plan as outlined above was discussed with the patient and/or family members who expressed understanding and agreement. All questions were answered. Thank you for involving us in the care of your patient. Please call with any questions. History of Present Illness Consult date: 12/13/17 Consult reason: NSTEMI Chief complaint: Chest pain History of present illness: Mr. Ballard is a 72 year old male hx of CAD s/p PCI in the past here for chest pain. Patient has been on the psyche unit at the [place] when his chest pain started , he is a poor historian. EKG's show ischemic anterior changes. Last ECHO with preserved EF 07/2017. Patient likely will need a LHC. He has been started on a Heparin drip and currently is pain free resting comfortably. Trops at [facility] Past Med Surg Social Fam HX - Past Medical History Medical history: myocardial infarction, other (PTSD, CO2 poisoning, CAD status post stents, hyperlipidemia, mild diastolic dysfunction with an last ejection fraction of 55-60% measured on July of this year, polyneuropathy, paranoia, syncopal episodes) Additional medical history: paranoid personality disorder, neuropathy, dementia with behavioral distrubances Psychiatric history: PTSD, other (Patient told me he had receive services years ago from the [place] for PTSD) - Past Surgical History Surgical History: other (Prior PCI) Additional surgical history: abd sx from tree injury - Social History Smoking Status: Former smoker Packs per day: Quit smoking many years ago Smokeless Tobacco Status: No Alcohol use: none Drug use: none - Family History Father Living Status: Hx Family Cardiac Disorders: Yes (heart attack) Medications and Allergies Acetaminophen [Non-Aspirin] 325 mg PO Q8H PRN 12/13/17 [History] Aspirin Enteric Coated [Aspirin EC] 81 mg PO DAILY 12/13/17 [History] Atorvastatin [Lipitor] 40 mg PO HS 12/13/17 [History] Cholecalciferol (D-3) [Vitamin D] 2,000 unit PO DAILY 12/13/17 [History] Divalproex (24 HR) [Depakote ER (24 HR)] 500 mg PO HS 12/13/17 [History] Donepezil [Aricept] 5 mg PO HS 12/13/17 [History] Mag Hydrox/Al Hydrox/Simeth [Antacid II-Simethicone Liq] 30 ml PO Q6H PRN [History] Meclizine HCl [Verticalm] 25 mg PO BID PRN 12/13/17 [History] Melatonin [Melatin] 9 mg PO HS 12/13/17 [History] Naproxen [Naprosyn] 500 mg PO BID 12/13/17 [History] Trazodone HCl 25 mg PO HS PRN 12/13/17 [History] risperiDONE [Risperidone] 1 mg PO HS 12/13/17 [History] 3 Allergy/AdvReac Type Severity Reaction Status Date / Time No Known Allergies Allergy Verified 07/23/17 13:11 All Systems Review: The remainder of the systems were reviewed and are negative Physical Examination Vital Signs, Last 4 Hours Temp Pulse Resp BP Pulse Ox 12/13/17 14:44 98.9 F 91 19 121/71 95 12/13/17 13:37 20 113/75 General: Conversant, No Apparent Distress HEENT: Atraumatic, Normocephaly, Mucus Membranes Moist Neck: No JVD, Normal carotid pulses Cardiac: Reg Rate and Rhythm, Normal S1 and S2, No Murmur Lungs: Normal Breath Sounds, No Wheeze, Rales, Rhonchi Neuro: Alert and responsive, No focal deficits noted Abdomen: Soft, Non-Tender Skin: No rashes noted on visualized skin Musculoskeletal: No Chest Wall Tenderness Extremities: No Clubbing, No Cyanosis, No Edema, Normal Pulses Results 12/13/17 10:48 12/13/17 10:48 Consult Discharge Plan - Plan [facility]errals: [facility] [Primary Care Provider] -
[2017-12-13] MEDS: Levofloxacin 750 MG/150 ML 750 MG/150 ML BAG IVPB SCH (16:12)
[2017-12-13] MEDS: 0.9 % Sodium Chloride 1,000 ML IVC SCH (16:13)
[2017-12-13] MEDS: Cefepime HCl 1,000 MG in 0.9 % Sodium Chloride Mini Bag 100 ML IVPB SCH (18:34)
[2017-12-13] MEDS: *HR* Heparin 5,000 UNIT/ML VIAL IVP PRN (19:22)
[2017-12-13] MEDS: Melatonin 3 MG TABLET PO SCH (21:04)
[2017-12-13] MEDS: Divalproex (24 HR) 500 MG TABLET PO SCH (21:04)
[2017-12-13] MEDS: risperiDONE 1 MG TABLET PO SCH (21:04)
[2017-12-14 01:40] LABS: Hematocrit 30.5 % (37.5-50.1); Hemoglobin 10.1 g/dL (12.9-16.9); Mean Corpuscular HGB Conc 33.1 g/dL (31.6-35.5); Mean Corpuscular Hemoglobin 30.8 pg (28.0-33.3); Mean Platelet Volume 9.3 fL (9.4-12.4); Platelet Count 214 K/mcL (140-400); Red Blood Count 3.28 M/mcL (4.19-5.50); Red Cell Distribution Width 12.9 % (11.5-14.5)
[2017-12-14] MEDS: *HR* Heparin 5,000 UNIT/ML VIAL IVP PRN (01:57)
[2017-12-14 01:58] LABS: Chol/HDL Ratio 4.1 (0-4.9)
[2017-12-14 01:59] LABS: BUN/Creatinine Ratio 28 (6-26); Blood Urea Nitrogen 20 mg/dL (8-23); Calcium 8.2 mg/dL (8.6-10.3); Carbon Dioxide 23 mEq/L (23-29); Chloride 103 mEq/L (98-107); Glucose 108 mg/dL (70-105); Osmolality,Calculated 279 (280-300); Sodium 133 mEq/L (136-145); eGFR For African Americans > 60 (> 60); eGFR For Non-African Americans > 60 (> 60)
[2017-12-14] MEDS: Cefepime HCl 1,000 MG in 0.9 % Sodium Chloride Mini Bag 100 ML IVPB SCH ×2 (05:49→20:20)
[2017-12-14] MEDS: 0.9 % Sodium Chloride 1,000 ML IVC SCH ×2 (08:05→20:19)
[2017-12-14] MEDS: Levofloxacin 750 MG/150 ML 750 MG/150 ML BAG IVPB SCH (08:06)
[2017-12-14] MEDS: Aspirin Enteric Coated 81 MG Tablet PO SCH (08:06)
--- NOTE | 2017-12-14 08:42 | Electrocardiograph Report ---
[facility] [employer] Test Date: 2017-12-13 Pat Name: Radu Ballard Department: [id number] Room: 3B64 Gender: M Systems Auditor: : 1945 Requested By: James Medrano Order Number: [id number] Reading MD: Harsh Candelaria Measurements Intervals [place] Rate: 92 P: 3 IA: 125 QRS: 20 QRSD: 87 T: -42 QT: 408 QTc: 458 Interpretive Statements SINUS RHYTHM MODERATE T-WAVE ABNORMALITY, CONSIDER ANTERIOR ISCHEMIA [-0.1+ mV T WAVE IN V3/V4] INTERPRETATION BASED ON A DEFAULT AGE OF 40 YEARS Electronically Signed On 12-14-2017 8:41:19 EDT by Harsh Candelaria
[2017-12-14] MEDS: Heparin 25,000 UNIT/500 ML D5W 25,000 UNIT/500 ML BAG IVC SCH (09:08)
--- NOTE | 2017-12-14 09:58 | Cardiology Progress Note ---
Date of Encounter: 12/14/17 Time of Encounter: 10:00 Assessment and Plan (1) Elevated troponin Current Visit: Yes Status: Acute Per Cardiology: Seen by Dr. Wallace yesterday. Patient with suspected non-STEMI with reported troponin elevation peak of 1.5 from outside facility at the [place]. Peak troponin during this hospital stay 0.14 area and currently chest pain-free. On IV heparin drip, aspirin, statin, beta chencho. Previous echo from earlier this year noted showed preserved EF. Proceed with catheterization as planned today. We will check limited echo. Cardiac rehabilitation consult ordered. Further recs after catheterization. Discussion w patient/family: The assessment and plan as outlined above was discussed with the patient and/or family members who expressed understanding and agreement. All questions were answered. Thank you for involving us in the care of your patient. Please call with any questions. Subjective Principal diagnosis: NSTEMI Interval history: Patient denies any current chest pain. Reports occasional cough with production of clear sputum. Patient reports he lives home alone and presented to [facility] because he was "blacking out". Reports transfer to the [place]. He should alert and oriented 3 today. He reports he makes his own medical decisions. Reports past history of 5 total stents with last catheterization many years ago. Objective Vital Signs, Last 4 Hours Temp Pulse Resp BP Pulse Ox 12/14/17 07:51 100.2 F H 81 17 110/66 94 General: Conversant, No Apparent Distress HEENT: Atraumatic, Normocephaly, Mucus Membranes Moist Neck: No JVD, Normal carotid pulses Cardiac: Reg Rate and Rhythm, Normal S1 and S2, No Murmur Lungs: Normal Breath Sounds, No Wheeze, Rales, Rhonchi Neuro: Alert and responsive, No focal deficits noted Abdomen: Soft, Non-Tender Skin: No rashes noted on visualized skin Musculoskeletal: No Chest Wall Tenderness Extremities: No Clubbing, No Cyanosis, No Edema, Normal Pulses Results 12/14/17 01:20 12/14/17 01:20 Lab Results Laboratory Tests 07/24/17 12/13/17 12/13/17 05:32 10:48 10:48 Hgb 14.0 Hct 40.7 INR 1.6 Creatinine Est GFR (Non-Af Amer) Troponin I B-Natriuretic Peptide 289 H LDL Cholesterol, Calc 12/13/17 12/13/17 12/13/17 10:48 10:48 16:23 Hgb 11.3 L Hct 33.3 L INR Creatinine Est GFR (Non-Af Amer) Troponin I 0.14 H* 0.12 H* B-Natriuretic Peptide LDL Cholesterol, Calc 12/13/17 12/14/17 12/14/17 22:54 01:20 01:20 Hgb 10.1 L Hct 30.5 L INR Creatinine 0.72 Est GFR (Non-Af Amer) > 60 Troponin I 0.10 H* B-Natriuretic Peptide LDL Cholesterol, Calc 12/14/17 01:20 Hgb Hct INR Creatinine Est GFR (Non-Af Amer) Troponin I B-Natriuretic Peptide LDL Cholesterol, Calc 36 ITS Impressions Chest X-Ray 12/13/17 10:42 IMPRESSION: Small left pleural effusion with adjacent atelectasis. D/ / Dennise Kurtz MD / Dennise Kurtz MD Interpreting Provider: Dennise Kurtz MD Active Medications Acetaminophen (Tylenol) 650 mg PO Q4HR PRN PRN Reason: fever and mild pain Stop: 06/14/18 13:22 Last Admin: 12/14/17 08:06 Dose: 650 mg Aspirin (Aspirin Ec) 81 mg PO DAILY MARQUITA Stop: 06/15/18 09:01 Last Admin: 12/14/17 08:06 Dose: 81 mg Atorvastatin Calcium (Lipitor) 40 mg PO HS MARQUITA Stop: 06/14/18 21:01 Last Admin: 12/13/17 21:04 Dose: 40 mg Divalproex Sodium (Depakote Er (24 Hr)) 500 mg PO HS MARQUITA Stop: 06/14/18 21:01 Last Admin: 12/13/17 21:04 Dose: 500 mg Donepezil HCl (Aricept) 5 mg PO HS MARQUTIA Stop: 06/14/18 21:01 Last Admin: 12/13/17 21:04 Dose: 5 mg Heparin Sodium (Porcine) (Heparin) 4,000 unit IVP Q6HR PRN PRN Reason: SEE COMMENTS Stop: 06/14/18 11:18 Heparin Sodium (Porcine) (Heparin) 2,000 unit IVP Q6H PRN PRN Reason: SEE COMMENTS Stop: 06/14/18 11:18 Last Admin: 12/14/17 01:57 Dose: 2,000 unit Heparin Sodium/Dextrose (Heparin 25,000 Unit/500 Ml D5w) 25,000 unit in 500 mls @ 20 mls/hr IVC .Q24H MARQUITA PRN Reason: Protocol Stop: 06/14/18 11:31 Last Admin: 12/14/17 09:08 Dose: 28 mls/hr, 28 mls/hr Sodium Chloride (0.9 % Sodium Chloride) 1,000 mls @ 75 mls/hr IVC .[id number] [facility] Stop: 06/14/18 13:31 Last Admin: 12/14/17 08:05 Dose: 75 mls/hr Levofloxacin/Dextrose (Levaquin Premix 750mg/150 Ml) 750 mg in 150 mls @ 100 mls/hr IVPB DAILY MARQUITA PRN Reason: Protocol Stop: 06/14/18 14:01 Last Admin: 12/14/17 08:06 Dose: 100 mls/hr Cefepime HCl 1,000 mg/ Sodium (Chloride) 100 mls @ 200 mls/hr IVPB Q12HR [facility] Stop: 06/14/18 13:22 Last Admin: 12/14/17 05:49 Dose: 200 mls/hr Meclizine HCl (Antivert) 25 mg PO BID PRN PRN Reason: Motion Sickness Melatonin (Melatonin) 9 mg PO HS [facility] Stop: 06/14/18 21:01 Last Admin: 12/13/17 21:04 Dose: 9 mg Metoprolol Tartrate (Lopressor) 12.5 mg PO BID [facility] Stop: 06/14/18 13:31 Last Admin: 12/14/17 08:07 Dose: 12.5 mg Naloxone HCl (Narcan) 0.4 mg IVP Q2MIN PRN PRN Reason: SEE COMMENTS Stop: 06/14/18 13:25 Nitroglycerin (Nitroglycerin) 0.4 mg SL Q5MIN PRN PRN Reason: Chest Pain Stop: 06/14/18 13:22 Omeprazole (Prilosec) 40 mg PO DAILY@0630 [facility] PRN Reason: Protocol Stop: 06/15/18 06:31 Last Admin: 12/14/17 05:48 Dose: Not Given Oxycodone HCl (Oxycodone Oral Conc) 5 mg SL Q4H PRN; Protocol PRN Reason: mild to moderate pain Stop: 06/14/18 13:25 Oxycodone HCl (Oxycodone Oral Conc) 10 mg SL Q4H PRN; Protocol PRN Reason: Severe Pain Stop: 06/14/18 13:25 Risperidone (Risperdal) 1 mg PO HS MARQUITA Stop: 06/14/18 21:01 Last Admin: 12/13/17 21:04 Dose: 1 mg Trazodone HCl (Trazodone) 25 mg PO HS PRN PRN Reason: Sleep Stop: 06/14/18 13:23 - Imaging and Cardiology Echo: report reviewed (07/2017: Impressions: LVEF 55-60%. Mild left ventricular diastolic dysfunction. Bi-atrial enlargement. Normal right ventricular structure and function. Mild mitral regurgitation. No pulmonary hypertension. Left Ventricular Wall Motion: Rest Echo Findings All wall segments showed normal motion.) Consult Discharge Plan - Plan [facility]errals: [facility] [Primary Care Provider[facility] -
--- NOTE | 2017-12-14 12:54 | Internal Med Progress Note ---
Date of Encounter: 12/14/17 Time of Encounter: 12:52 - Assessment and plan (1) Non-STEMI (non-ST elevated myocardial infarction) Current Visit: Yes Status: Acute Assessment and plan: presented with chest pain and elevated troponin from [facility]. Cont heparin gtt, BB, ASA, statin. LHC and limited echo pending. Cardiology following (2) HCAP (healthcare-associated pneumonia) Current Visit: Yes Status: Acute Assessment and plan: pneumonia present upon admission. Cont cefepime, Levaquin. Resp PCR, urinary antigens pending (3) PTSD (post-traumatic stress disorder) Current Visit: No Status: Acute Assessment and plan: per hx. Plan to return to [facility] facility at discharge (4) Schizophrenia Current Visit: No Status: Acute Assessment and plan: per hx. Plan to return to [facility] facility at discharge Qualifiers: Schizophrenia type: paranoid schizophrenia Qualified Code(s): F20.0 - Paranoid schizophrenia (5) Hyperlipidemia Current Visit: Yes Status: Acute Assessment and plan: per hx. Cont home statin Qualifiers: Hyperlipidemia type: unspecified Qualified Code(s): E78.5 - Hyperlipidemia , unspecified (6) DVT prophylaxis Current Visit: Yes Status: Acute Assessment and plan: heparin gtt - Time Spent With Patient Total time spent is greater than 50% in coordination of care (as documented) at patient's floor/unit and/or counseling patient: - Subjective Interval history: Seen and cemented at bedside. Patient is known to me from previous admission. Resting in bed, appears comfortable. He only answers some questions and does not provide much details. Response to his name. Denies chest pain or shortness of breath. Asked about time of left heart catheterization otherwise unable to obtain further information. He does not answer review of system questions nor does he provide subjective information. - Constitutional Vitals: Temp Pulse Resp BP Pulse Ox 98.9 F 76 16 106/68 96 12/14/17 12:07 12/14/17 12:07 12/14/17 12:07 12/14/17 12:07 12/14/17 12:07 General appearance: Present: A&O X 3, no acute distress - Head Head exam: Present: atraumatic, normocephalic - Eye Eye exam: Present: PERRL, conjuntiva pink, sclera anicteric Pupils: Present: PERRL - Neck Neck exam general surgery: Present: supple, trachea midline. Absent: lymphadenopathy - Respiratory Respiratory exam: Present: CTAB. Absent: accessory muscle use, rales, rhonchi, wheezes - Cardiovascular Cardiovascular exam: Present: RRR, +S1, +S2. Absent: diastolic murmur, gallop, rubs, systolic murmur - GI/Abdominal GI/Abdominal exam: Present: normal bowel sounds, soft, no peritoneal signs. Absent: distended, tenderness - Extremities Exam Extremities exam: Present: warm, radial pulses palpable and symmetrical. Absent : calf tenderness, cyanotic, pedal edema - Neurological Exam Neurological exam: Present: CN II-XII intact, oriented X3, no focal deficits. Absent: pronater drift, facial droop, speech deficit - Psychiatric Psychiatric exam: Present: flat affect - Skin Skin exam: Present: dry, intact Internal Medicine: Result - Labs CBC & Chem 7: 12/14/17 01:20 12/14/17 01:20 Labs: Short CBC 12/14/17 Range/Units 01:20 WBC 10.7 (4.3-11.1) K/mcL Hgb 10.1 L (12.9-16.9) g/dL Hct 30.5 L (37.5-50.1) % Plt Count 214 (140-400) K/mcL BMP 12/14/17 01:20 Sodium 133 L Potassium 4.0 Chloride 103 Carbon Dioxide 23 BUN 20 Creatinine 0.72 Glucose 108 H Calcium 8.2 L Cardiac Enzymes 12/13/17 12/13/17 Range/Units 16:23 22:54 Troponin I 0.12 H* 0.10 H* (< 0.04) ng/mL - ABG Interpretation ABG results: PT/INR, D-dimer PT 17.6 Seconds (9.4-12.1) H 12/13/17 10:48 Consult Discharge Plan - Plan [facility]: [facility] [Primary Care Provider[facility] -
[2017-12-14] MEDS ORDERED: ISOVUE-370 200 ML INFUS..BTL IV ONE ×3 (15:19→16:58)
[2017-12-14] MEDS ORDERED: *HR* Heparin 10,000 UNIT/10 ML VIAL ONE ×2 (15:19→16:33)
[2017-12-14] MEDS ORDERED: Heparin 1,000 UNITS/500 mL 500 ML ONE ×3 (15:19→17:43)
[2017-12-14] MEDS ORDERED: 0.9 % Sodium Chloride 1,000 ML ONE (15:19)
[2017-12-14] MEDS ORDERED: Nitroglycerin 1,000 MCG/10 ML VIAL IV ONE (16:04)
[2017-12-14] MEDS ORDERED: *HR* Midazolam HCl 2 MG/2 ML VIAL ONE (16:04)
[2017-12-14] MEDS ORDERED: *HR* FentaNYL (PF) 100 MCG/2 ML VIAL ONE (16:04)
[2017-12-14] MEDS ORDERED: Tirofiban 12.5 MG/250ML 12.5 MG/250 ML BAG ONE (16:34)
[2017-12-14] MEDS ORDERED: Heparin 25,000 UNIT/500 ML D5W 25,000 UNIT/500 ML BAG IVC ONE (18:19)
[2017-12-14] MEDS: Tirofiban 12.5 MG/250ML 12.5 MG/250 ML BAG IVC SCH (18:30)
--- NOTE | 2017-12-14 18:35 | Invasive Diagnostic Lab Proc ---
Name: Radu Ballard Date of Study: 12/14/2017 Date: 1945 Ht: 70.9in Medical Record#: [id number] Age: 72 Wt: 209.44lb Gender: Male BSA: 2.15 Order #: [id number] BMI: 29.32 Physicians Procedure Physician: Edide Wallace MD Referring MD: Referring MD: Staff Name Position Time In Patricia Devlin RT (R) Scrub 03:50 PM Ivy Posada RN Drop Forger Helper 03:51 PM Elizabeth Rodriguez RN Drop Forger Helper 03:51 PM Maria Isabel Guerrero RT Scrub 05:32 PM Reema Pandya RN Monitor 05:32 PM Indications Indication Non-Stemi Procedures Performed Procedure L HRT ARTERY/VENTRICLE ANGIO PRQ CARDIAC ANGIOPLAST 1 ART IABP INSERTION, PERCUTANEOUS Pre-Procedure Checklist Informed consent is complete signed and on chart. H&P is on chart. ID band is on and ID verified with patient. Patient NPO for procedure The procedure was described for the patient and questions were answered. Blood Pressure: 119/66 ECG is on chart. Rhythm: NSR Plan of Care Patient will tolerate the procedure without complications. Adequate level of comfort will be maintained. Hemodynamics will remain stable Patient will recover from procedure without complications. Respiratory function will be maintained. Cardiac rhythm will remain stable. Patient temperature will be maintained. Patient and/or family have verbalized understanding of the procedure. Patient Education Chief Complaint/Reason for Test: Cardiac Cath Developmental Category: Geriatric (65+ years) Developmentally Appropriate for Age: Yes Learning Barriers: None Education Needs: Procedure Education Method: Verbal Information Taught: Cardiac Cath Educational Evaluation: Able to repeat information Intravenous Access Time IV Size Location DC'd Fluid/Drip Rate Units RN 03:51 PM 20g 1 1/4" Patent On Arrival Lt Antecubital 0.9NaCl 25 ml/hr Elizabeth Rodriguez RN 03:52 PM 20g 1 1/4" Patent On Arrival Rt Antecubital Allergies No Known Allergies Vital Signs Time BP (mmHg) HR (bpm) O2 Sat. RR (bpm) LOC 03:49 PM 119 / 66 84 95 % 15 5 = Fully awake and oriented or at pre-proc level 03:49 PM / % 5 = Fully awake and oriented or at pre-proc level 04:06 PM / % 4 = Oriented but drowsy 04:21 PM / % 4 = Oriented but drowsy 04:36 PM / % 4 = Oriented but drowsy 04:51 PM / % 4 = Oriented but drowsy 05:18 PM / % 4 = Oriented but drowsy 05:18 PM / % 4 = Oriented but drowsy 05:34 PM / % 4 = Oriented but drowsy 04:00 PM 119 / 66 84 % 25 04:05 PM 128 / 75 84 97 % 9 04:10 PM 107 / 65 84 93 % 19 04:15 PM 107 / 63 85 94 % 31 04:20 PM 108 / 62 85 93 % 24 04:25 PM 110 / 60 87 94 % 17 04:30 PM 83 / 55 84 95 % 30 04:32 PM 92 / 63 80 96 % 17 04:35 PM 91 / 63 75 95 % 13 04:40 PM 84 / 55 77 97 % 32 04:42 PM 88 / 58 77 97 % 35 04:47 PM 77 / 52 74 97 % 23 04:50 PM 95 / 67 101 89 % 17 05:37 PM 114 / 68 89 96 % 12 05:42 PM 114 / 73 91 96 % 17 05:47 PM 117 / 72 89 96 % 29 05:52 PM 123 / 85 122 97 % 23 06:01 PM 80 / 49 107 91 % 34 04:51 PM 103 / 72 105 93 % 18 04:56 PM 106 / 69 110 95 % 37 05:01 PM 111 / 74 111 96 % 26 05:07 PM 101 / 68 92 97 % 20 05:12 PM 98 / 57 84 97 % 17 05:16 PM 106 / 74 96 95 % 23 05:21 PM 117 / 71 96 96 % 25 05:24 PM 116 / 68 95 96 % 19 05:27 PM 113 / 70 93 95 % 21 05:32 PM 110 / 65 93 95 % 16 Procedural Medications Time Medication Dose Units Method Given By 03:58 PM Oxygen 2 L/min nasal cannula Elizabeth Rodriguez RN 04:06 PM Versed 1 mg Intravenous Ivy Posada RN 04:06 PM Fentanyl 50 mcg Intravenous Ivy Posada RN 04:13 PM Lidocaine 2% 18 ml Subcutaneous Eddie Wallace MD 04:32 PM Heparin 3000 units Intravenous Elizabeth Rodriguez RN 04:33 PM Heparin 2000 units Intravenous Elizabeth Rodriguez RN 04:35 PM Aggrastat Bolus: 46 ml Intravenous Ivy Posada RN 04:35 PM Aggrastat 12.5mg/250ml 16.5 ml/hr Intravenous Ivy Posada RN 04:42 PM Dopamine 10 mg/kg/min Intravenous Ivy Posada RN 04:45 PM Heparin 5000 units IntraCoronary Yany Wallace MD 04:47 PM Aggrastat Bolus: 46 ml Intravenous Ivy Posada RN 04:49 PM Oxygen 4 L/min nasal cannula Ivy Posada RN 04:59 PM Dopamine 8 mg/kg/min Intravenous Ivy Posada RN 05:16 PM Dopamine 6 mg/kg/min Intravenous Ivy Posada RN 05:22 PM Dopamine 5 mcg/kg/min Intravenous Ivy Posada RN 05:25 PM Dopamine 4 mcg/kg/min Intravenous Elizabeth Rodriguez RN 05:31 PM Dopamine 3 mcg/kg/min Intravenous Ivy Posada RN 05:42 PM Dopamine 2 mcg/kg/min Intravenous Ivy Posada RN 05:50 PM Versed 1 mg Intravenous Elizabeth Rodriguez RN 05:50 PM Fentanyl 50 mcg Intravenous Elizabeth Rodriguez RN 05:52 PM Heparin 2000 units Intravenous Elizabeth Rodriguez RN 06:02 PM Dopamine 2 mcg/kg/min Intravenous Ivy Posada RN 06:20 PM Heparin 1000 ml/hr Intravenous Ivy Posada RN ASA Classification: CLASS III- Severe systemic disease (i.e. prior AMI, diabetes with vascular complications, morbid obesity) Yoon Score Preprocedure Postprocedure Activity 2- Moves 4 extremities sustained head lift Activity Circulation 2- SBP +/= 20 points of pre-anesthetic level Circulation Consciousness 2- Awake and alert oriented x 3 Consciousness O2 Saturation 2- Able to maintain O2 satruation of 92% on room air O2 Saturation Respiratory 2- Able to deep breathe and cough well Respiratory Total Score 10 Total Score Contrast Agent: Isovue Diagnostic Contrast: 417 ml Total Contrast: 417 ml Fluoro Dose: 4235 mGy Activated Clotting Time Time Seconds to Clot 05:50 PM 189 Procedure Log Time Note Enter By 03:29 PM Patient charges- Angio tray pack, Navilyst 3mm J, Pulse Oximetry and ACIST tubing and transducer [email or web address] 03:49 PM Pt arrived to physical laboratory assistant 1 at 15:49 [email or web address] 03:49 PM Time: 15:49 Patient comfortable and pain free: Yes [email or web address] 03:49 PM Time: 15:49LOC: 5 = Fully awake and oriented or at pre-proc level [email or web address] 03:50 PM CathStat 03:51 PM Patricia Devlin (R) Position: Scrub Time in: 15:50 [email or web address] 03:51 PM Ivy Posada RN Position: Drop Forger Helper Time in: 15:51 [email or web address] 03:51 PM Elizabeth Rodriguez RN Position: Drop Forger Helper Time in: 15:51 [email or web address] 03:51 PM Clinical Presentation: Non-STEMI [email or web address] 03:56 PM Case Delayed No [email or web address] 03:56 PM Physician arrived 15:56 [email or web address] 03:56 PM Meet and greet completed [email or web address] 03:56 PM Sign in performed according to hospital policy. [email or web address] 03:56 PM Procedure start 15:56 [email or web address] 03:56 PM ASA Class CLASS III- Severe systemic disease (i.e. prior AMI, diabetes with vascular complications, morbid obesity) [email or web address] 03:58 PM Hair removed from procedure site in procedure lab using clippers. Bilateral groin prepped with Chloraprep by Patricia Devlin (R), then patient was draped. Skin intact. [email or web address] 03:58 PM Time: 15:58 Oxygen on at 2 L/min per nasal cannula by Elizabeth Rodriguez RN 03:59 PM Vitals capture started with the following parameters, Patient=Adult, Interval=5 min, Initial Tjawsfic=867 mmHg, Deflation Rate=3 mmHg, Cuff placed on Right Arm 04:00 PM Recorded ECG: HR=84 Condition=Condition 1 04:00 PM HR=84 bpm, XVQU=605/66 mmhg, Resp=25 B/min 04:05 PM HR=84 bpm, QAUM=031/75 mmhg, SpO2=97.0 %, Resp=9 B/min 04:06 PM Time: 15:49LOC: 5 = Fully awake and oriented or at pre-proc level [email or web address] 04:06 PM Time: 15:49 Patient comfortable and pain free: Yes 2 04:06 PM Time: 16:06 Versed 1 mg Intravenous Given by Ivy Posada RN michael 04:06 PM Time: 16:06 Fentanyl 50 mcg Intravenous Given by Ivy Posada RN 04:09 PM Pressure channel 1 zeroed. 04:10 PM HR=84 bpm, OKVV=794/65 mmhg, SpO2=93.0 %, Resp=19 B/min 04:13 PM Time out performed according to hospital policy 04:14 PM Time: 16:13 18 ml Lidocaine 2% to right groin Subcutaneous Given by Eddie Wallace MD 04:14 PM Micro-Introducer Kit utilized for sheath placement bw 04:14 PM hand injected right femoral angio 3cc contrast 04:15 PM HR=85 bpm, ZXSN=041/63 mmhg, SpO2=94.0 %, Resp=31 B/min 04:15 PM Access obtained by percutaneous puncture. 6Fr 10cm Terumo [place] sheath placed in right Femoral artery. [id number] 04:16 PM 0.035 145cm Navilyst 3mmJ wire [id number] 04:16 PM 5Fr FR 4 catheter inserted over the wire [facility] 04:17 PM RCA angiography performed in multiple views. 04:17 PM Coronary Dominance: right bw 04:17 PM Catheter removed 04:17 PM 5Fr FL 4 catheter inserted over the wire DN 04:18 PM LCA angiography performed in multiple views. [email or web address] 04:18 PM Recorded Pressure: Ao, HR=85, Condition=Condition 1 (Aorta) Ao 104/51/73 04:20 PM Recorded Pressure: Ao, HR=85, Condition=Condition 1 (Aorta) Ao 83/52/66 04:20 PM HR=85 bpm, NMFQ=359/62 mmhg, SpO2=93.0 %, Resp=24 B/min 04:21 PM Time: 16:06 Patient comfortable and pain free: Yes 04:21 PM Time: 16:06LOC: 4 = Oriented but drowsy [email or web address] 04:24 PM Physician reviewing films [email or web address] 04:25 PM HR=87 bpm, OCMV=308/60 mmhg, SpO2=94.0 %, Resp=17 B/min 04:27 PM Catheter removed bw 04:27 PM 6Fr FL4 catheter inserted over the wire [id number] [email or web address] 04:29 PM LCA angiography performed in multiple views. [email or web address] 04:30 PM Recorded Pressure: Ao, HR=84, Condition=Condition 1 (Aorta) Ao 67/46/55 04:30 PM HR=84 bpm, NIBP=83/55 mmhg, SpO2=95.0 %, Resp=30 B/min 04:31 PM Recorded ECG: HR=86 Condition=Condition 1 04:31 PM Vitals capture stopped. 04:31 PM Vitals capture started with the following parameters, Patient=Adult, Interval=5 min, Initial Puagaetc=260 mmHg, Deflation Rate=3 mmHg, Cuff placed on Right Arm 04:32 PM HR=80 bpm, NIBP=92/63 mmhg, SpO2=96.0 %, Resp=17 B/min 04:32 PM Catheter removed [email or web address] 04:32 PM fluids open ivy posada RN [email or web address] 04:32 PM Time: 16:32 Heparin 3000 units Intravenous Given by Elizabeth Rodriguez RN [email or web address] 04:33 PM 6Fr XB LAD 3.5 [place] Bright-Tip guide catheter was used to cannulate the PCI vessel successfully. reused? No [email or web address] 04:34 PM Time: 16:33 Heparin 2000 units Intravenous Given by Elizabeth Rodriguez RN [email or web address] 04:34 PM Lesion found in Proximal RCA. Pre Stenosis: 100 Pre MATIAS Flow: [email or web address] 04:34 PM Right Coronary, Right Posterior Descending Arteries with Right Posterolateral and Acute Marginal branches with 100 % stenosis. If graft is supplying this area, 0 % stenosis [email or web address] 04:34 PM Vitals capture stopped. 04:34 PM Vitals capture started with the following parameters, Patient=Adult, Interval=5 min, Initial Gljhdowf=000 mmHg, Deflation Rate=3 mmHg, Cuff placed on Right Arm 04:35 PM HR=75 bpm, NIBP=91/63 mmhg, SpO2=95.0 %, Resp=13 B/min 04:35 PM Time: 16:35 Aggrastat Bolus: 46 ml Intravenous Given by Ivy Posada RN Blanton pump [email or web address] 04:36 PM Time: 16:35 Aggrastat 12.5mg/250ml 16.5 ml/hr Intravenous Given by Ivy Posada RN Blanton pump [email or web address] 04:36 PM Time: 16:21LOC: 4 = Oriented but drowsy [email or web address] 04:36 PM Time: 16:21 Patient comfortable and pain free: Yes [email or web address] 04:38 PM Guide catheter removed intact. [email or web address] 04:38 PM 6Fr XB4.0 [place] Bright-Tip guide catheter was used to cannulate the PCI vessel successfully. reused? No [email or web address] 04:38 PM large amounts of clot coming from accounting instructor. [email or web address] 04:39 PM .014 [employer] [place] 190cm guide wire across target lesion- successful. reused? No [email or web address] 04:39 PM Vitals capture stopped. 04:39 PM Vitals capture started with the following parameters, Patient=Adult, Interval=5 min, Initial Amvnrxyu=399 mmHg, Deflation Rate=3 mmHg, Cuff placed on Right Arm 04:40 PM HR=77 bpm, NIBP=84/55 mmhg, SpO2=97.0 %, Resp=32 B/min 04:40 PM .014 [employer] [place] 300cm guide wire across target lesion- successful. reused? No [email or web address] 04:[address] Gibson paged per Dr. Wallace, Dr. Gibson responded. 04:41 PM Recorded Pressure: Ao, HR=79, Condition=Condition 1 (Aorta) Ao 71/49/59 04:41 PM Physician consulting with Dr. Gibson bw 04:41 PM Vitals capture stopped. 04:41 PM Vitals capture started with the following parameters, Patient=Adult, Interval=5 min, Initial Fdupknck=498 mmHg, Deflation Rate=3 mmHg, Cuff placed on Right Arm 04:42 PM Time: 16:42 Dopamine 10 mg/kg/min Intravenous Given by Ivy Posada RN Blanton pump [email or web address] 04:42 PM HR=77 bpm, NIBP=88/58 mmhg, SpO2=97.0 %, Resp=35 B/min 04:42 PM 2.0 mm x 12 mm Emerge Monorail balloon across target lesion- successful. reused? No [email or web address] 04:42 PM Lesion found in Proximal LAD. Pre Stenosis: 100 Pre MATIAS Flow: [email or web address] 04:43 PM Proximal Left Anterior Descending Coronary Artery with 100% stenosis. If graft is supplying this territory, 0 % stenosis. [email or web address] 04:44 PM Balloon inflated @ 6 jan for 4 seconds [email or web address] 04:44 PM Balloon inflated @ 4 jan for 4 seconds [email or web address] 04:44 PM IV went bad, changed drips to RT AC IV [email or web address] 04:45 PM Time: 16:45 Heparin 5000 units IntraCoronary Given by Yany Wallace MD 04:47 PM Time: 16:47 Aggrastat Bolus: 46 ml Intravenous Given by Ivy Posada RN Blanton pump 04:47 PM HR=74 bpm, NIBP=77/52 mmhg, SpO2=97.0 %, Resp=23 B/min 04:49 PM Pronto V4 thrombectomy pass # 1 04:49 PM NIBP STAT measurement started. 04:49 PM Time: 16:49 Oxygen on at 4 L/min per nasal cannula by Ivy Posada RN 04:50 PM EI=949 bpm, NIBP=95/67 mmhg, SpO2=89.0 %, Resp=17 B/min 04:50 PM Recorded Pressure: Ao, AC=885, Condition=Condition 1 (Aorta) Ao 90/62/75 04:51 PM Vitals capture stopped. 04:51 PM Vitals capture started with the following parameters, Patient=Adult, Interval=5 min, Initial Rfqectrk=222 mmHg, Deflation Rate=3 mmHg, Cuff placed on Right Arm 04:51 PM Time: 16:36 Patient comfortable and pain free: Yes 04:51 PM Time: 16:36LOC: 4 = Oriented but drowsy bw 04:[address] Gibson in lab discussing films with Dr. Wallace. 04:51 PM FV=262 bpm, HQRL=202/72 mmhg, SpO2=93.0 %, Resp=18 B/min 04:56 PM FA=812 bpm, CQOE=575/69 mmhg, SpO2=95.0 %, Resp=37 B/min 04:58 PM 1.5 mm x 15 mm Emerge Monorail balloon across target lesion- successful. reused? No 04:59 PM Time: 16:59 Dopamine 8 mg/kg/min Intravenous Given by Ivy Posada RN Blanton pump 05:00 PM fluids turned down ivy posada RN 05:00 PM Recorded Pressure: Ao, RW=456, Condition=Condition 1 (Aorta) Ao 93/61/76 05:01 PM Balloon inflated @ 6 jan for 4 seconds bw 05:01 PM Balloon inflated @ 6 jan for 4 seconds [email or web address] 05:01 PM Balloon inflated @ 6 jan for 4 seconds [email or web address] 05:01 PM QQ=857 bpm, EHXL=144/74 mmhg, SpO2=96.0 %, Resp=26 B/min 05:02 PM Balloon inflated @ 6 jan for 4 seconds [email or web address] 05:02 PM Balloon inflated @ 12 jan for 8 seconds [email or web address] 05:02 PM Balloon inflated @ 12 jan for 6 seconds [email or web address] 05:03 PM Balloon inflated @ 12 jan for 6 seconds [email or web address] 05:03 PM Balloon inflated @ 12 jan for 6 seconds [email or web address] 05:04 PM Balloon inflated @ 14 jan for 12 seconds [email or web address] 05:04 PM Balloon catheter removed intact. [email or web address] 05:05 PM Recorded Pressure: Ao, HR=86, Condition=Condition 1 (Aorta) Ao 91/55/71 05:06 PM Time: 16:51LOC: 4 = Oriented but drowsy [email or web address] 05:06 PM Time: 16:51 Patient comfortable and pain free: Yes [email or web address] 05:06 PM 2.8yel84ds balloon advanced [email or web address] 05:07 PM HR=92 bpm, XRPU=065/68 mmhg, SpO2=97.0 %, Resp=20 B/min 05:07 PM Balloon inflated @ 10 jan for 6 seconds [email or web address] 05:07 PM Balloon inflated @ 10 jan for 7 seconds [email or web address] 05:08 PM Balloon inflated @ 10 jan for 6 seconds [email or web address] 05:09 PM Balloon inflated @ 10 jan for 20 seconds [email or web address] 05:09 PM Recorded ECG: HR=91 Condition=Condition 1 05:09 PM Balloon inflated @ 10 jan for 20 seconds [email or web address] 05:10 PM Balloon inflated @ 10 jan for 20 seconds [email or web address] 05:10 PM Balloon catheter removed intact. [email or web address] 05:11 PM Guide wire removed intact. [email or web address] 05:11 PM Recorded Pressure: Ao, HR=87, Condition=Condition 1 (Aorta) Ao 83/51/65 05:12 PM HR=84 bpm, NIBP=98/57 mmhg, SpO2=97.0 %, Resp=17 B/min 05:12 PM Guide catheter removed intact. [email or web address] 05:12 PM 5Fr Pigtail catheter inserted over the wire [facility] [email or web address] 05:13 PM Catheter selectively placed in left ventricle [email or web address] 05:13 PM Recorded Pressure: LV, HR=90, Condition=Condition 1 (Left Ventricle) LV 97/4/8 05:14 PM Bolus angiogram of left Ventricle complete: 10 ml/sec for a total of 20 mls [email or web address] 05:15 PM Recorded Pressure: LV, Ao, HR=93, Condition=Condition 1 (Left Ventricle) LV 101/4/8, (Aorta) Ao 96/54/73 05:15 PM Catheter removed [email or web address] 05:16 PM Time: 17:16 Dopamine 6 mg/kg/min Intravenous Given by Ivy Posada RN Blanton pump 05:16 PM HR=96 bpm, RGER=982/74 mmhg, SpO2=95.0 %, Resp=23 B/min 05:18 PM Recorded Pressure: Ao, HR=97, Condition=Condition 1 (Aorta) Ao 126/59/81 05:18 PM Time: 17:18 Patient comfortable and pain free: Yes [email or web address] 05:18 PM Time: 17:18LOC: 4 = Oriented but drowsy [email or web address] 05:21 PM HR=96 bpm, THUR=483/71 mmhg, SpO2=96.0 %, Resp=25 B/min 05:22 PM Time: 17:22 Dopamine 5 mcg/kg/min Intravenous Given by Ivy Posada RN Blanton pump 05:23 PM NIBP STAT measurement started. 05:24 PM HR=95 bpm, KWTU=002/68 mmhg, SpO2=96.0 %, Resp=19 B/min 05:24 PM Recorded Pressure: Ao, HR=95, Condition=Condition 1 (Aorta) Ao 128/58/81 05:25 PM Time: 17:25 Dopamine 4 mcg/kg/min Intravenous Given by Elizabeth Rodriguez RN Blanton pump 05:27 PM HR=93 bpm, WNAM=976/70 mmhg, SpO2=95.0 %, Resp=21 B/min 05:29 PM 6Fr XB4.0 [place] guide catheter was used to cannulate the PCI vessel successfully. reused? Yes 05:31 PM Time: 17:31 Dopamine 3 mcg/kg/min Intravenous Given by Ivy Posada RN Blanton pump ner 05:32 PM HR=93 bpm, JHVV=537/65 mmhg, SpO2=95.0 %, Resp=16 B/min 05:32 PM Maria Isabel Guerrero RT Position: Scrub Time in: 17:32 to relieve Patricia Devlin RT (R) 05:34 PM Reema Pandya RN Position: Monitor Time in: 17:32 to relieve Eliane Guerreroi RT 05:34 PM Time: 17:18 Patient comfortable and pain free: Yes 05:34 PM Time: 17:18LOC: 4 = Oriented but drowsy kk 05:35 PM Guide catheter removed intact. kk 05:35 PM 6Fr CLS 4 [place] guide catheter was used to cannulate the PCI vessel successfully. reused? No kk 05:37 PM HR=89 bpm, WIQQ=671/68 mmhg, SpO2=96.0 %, Resp=12 B/min 05:39 PM Guide catheter removed intact. [email or web address] 05:42 PM HR=91 bpm, GBBK=911/73 mmhg, SpO2=96.0 %, Resp=17 B/min 05:43 PM Time: 17:42 Dopamine 2 mcg/kg/min Intravenous Given by Ivy Posada RN Blanton pump 05:47 PM HR=89 bpm, INDK=830/72 mmhg, SpO2=96.0 %, Resp=29 B/min 05:48 PM Bed management reports pt will go to ICU room 8 when room is clean. 05:48 PM Perfusion contacted to assist with balloon pump. 05:50 PM Time: 17:34LOC: 4 = Oriented but drowsy 05:50 PM Time: 17:34 Patient comfortable and pain free: Yes 05:50 PM At 17:50 the ACT was 189 seconds. 05:50 PM Time: 17:50 Versed 1 mg Intravenous Given by Elizabeth Rodriguez RN 05:51 PM Time: 17:50 Fentanyl 50 mcg Intravenous Given by Elizabeth Rodriguez RN [email or web address] 05:51 PM inserting balloon pump at this time kk 05:52 PM RF=194 bpm, HKJH=733/85 mmhg, SpO2=97.0 %, Resp=23 B/min 05:52 PM Time: 17:52 Heparin 2000 units Intravenous Given by Elizabeth Rodriguez RN [email or web address] 05:52 PM 8 Fr Maquet Balloon Pump IABP catheter inserted into right Femoral artery, 50 cc, *ACC* catheter inserted 1 [email or web address] 05:53 PM IABP Settings: 1:1 ratio Pressure trigger [email or web address] 05:54 PM dopamine off at this time [email or web address] 05:54 PM IABP Systemic BP: 123/85 [email or web address] 05:54 PM IABP in Standby mode [email or web address] 05:54 PM IABP resumed inflations [email or web address] 05:55 PM IABP Augmented pressure, mean: 145 [email or web address] 05:55 PM IABP sheath sutured to skin [email or web address] 05:56 PM Recorded ECG: XL=366 Condition=Condition 1 05:59 PM Vitals capture stopped. 06:00 PM NIBP STAT measurement started. 06:01 PM DK=937 bpm, NIBP=80/49 mmhg, SpO2=91.0 %, Resp=34 B/min 06:01 PM Procedure completed at 18:01 [email or web address] 06:02 PM Time: 18:02 Dopamine 2 mcg/kg/min Intravenous Given by Ivy Posada RN Blanton pump [email or web address] 06:03 PM Sign out completed: Radiation Dose 4235.08 mGy Fluoro Time: 22.1 Isovue 370 - 200ml contrast 417 ml given by Eddie Wallace MD. Complications: NoneCardiac Rehab Consult needed: YesConfirmed administered medications: Yes [email or web address] 06:03 PM Isovue 370 - 200ml,3 Bottle(s) used. [email or web address] 06:03 PM Estimated Blood Loss: less than 50cc [email or web address] 06:04 PM Post ECG NSR [email or web address] 06:04 PM Post Blood Pressure 80/49 [email or web address] 06:04 PM Education needs Procedure, Plan of Care, and Responsibilities of Patient in Care [email or web address] 06:04 PM Learning barriers :Sedated [email or web address] 06:04 PM Education Methods Verbal [email or web address] 06:04 PM Site status No bleeding/hematoma - Rt Groin as reported by Maria Isabel Guerrero RT at 18:04 [email or web address] 06:04 PM Opsite applied [email or web address] 06:04 PM Plavix, Effient or Brilinta given No [email or web address] 06:04 PM Delay to floor Bed availability [email or web address] 06:04 PM IV in LAC removed at this time. [email or web address] 06:05 PM no family present at this time. [email or web address] 06:05 PM Fluoro Time: 22.1 [email or web address] 06:05 PM Radiation Dose 4235.08 mGy [email or web address] 06:05 PM Isovue 370 - 200ml contrast [address] Wallace. 06:06 PM IABP Augmented pressure, mean: 119 06:06 PM IABP Systemic BP: 80/49 06:11 PM thomas catheter being inserted per sterile technique per Boo niño 06:12 PM Report given to Eliot SEGOVIA Pt taken to ICU Room #03. 18:12 ner 06:12 PM Lesion found in LMCA. Pre Stenosis: 70 Pre MATIAS Flow: 06:20 PM Time: 18:20 Heparin 1000 units/hr Intravenous Given by Ivy Posada RN Blanton pump [email or web address] 06:21 PM Patient out of room: 18:21 [place] Complications Complication None Hemodynamics Pressures Site Systolic/A Wave Diastolic/V Wave Mean AO 104 51 73 AO 83 52 66 AO 67 46 55 AO 71 49 59 AO 90 62 75 AO 93 61 76 AO 91 55 71 AO 83 51 65 LV 97 4 8 LV 101 4 8 AO 96 54 73 AO 126 59 81 AO 128 58 81 Post Procedure Information Blood Pressure: 80/49 mmHg Rhythm: NSR Post procedural instructions were given Site Checks Time Location Status Staff Sheath In? Note 06:04 PM Rt Groin No bleeding/hematoma Maria Isabel Guerrero RT Pulses Time Site Pre-Procedure Post-Procedure Note 12/14/2017 3:52:00 PM Bilateral DP & PT 1+ Updated by Maria Isabel Guerrero, RT (R) on 12/14/2017 6:26:47 PM electronically signed on 12/14/2017 6:27:26 PM with status of Final
--- NOTE | 2017-12-14 18:35 | Invasive Diagnostic Lab Proc ---
Name: Radu Ballard Date of Study: 12/14/2017 Date: 1945 Ht: 70.9in Medical Record#: [id number] Age: 72 Wt: 209.44lb Gender: Male BSA: 2.15 Order #: [id number] BMI: 29.32 Physicians Procedure Physician: Eddie Wallace MD Referring MD: Referring MD: Staff Name Position Time In Patricia Devlin RT (R) Scrub 03:50 PM Ivy Posada RN Electrician 03:51 PM Elizabeth Rodriguez RN Electrician 03:51 PM Maria Isabel Guerrero RT Scrub 05:32 PM Reema Pandya RN Monitor 05:32 PM Indications Indication Non-Stemi Procedures Performed Procedure L HRT ARTERY/VENTRICLE ANGIO PRQ CARDIAC ANGIOPLAST 1 ART Pre-Procedure Checklist Informed consent is complete signed and on chart. H&P is on chart. ID band is on and ID verified with patient. Patient NPO for procedure The procedure was described for the patient and questions were answered. Blood Pressure: 119/66 ECG is on chart. Rhythm: NSR Plan of Care Patient will tolerate the procedure without complications. Adequate level of comfort will be maintained. Hemodynamics will remain stable Patient will recover from procedure without complications. Respiratory function will be maintained. Cardiac rhythm will remain stable. Patient temperature will be maintained. Patient and/or family have verbalized understanding of the procedure. Patient Education Chief Complaint/Reason for Test: Cardiac Cath Developmental Category: Geriatric (65+ years) Developmentally Appropriate for Age: Yes Learning Barriers: None Education Needs: Procedure Education Method: Verbal Information Taught: Cardiac Cath Educational Evaluation: Able to repeat information Intravenous Access Time IV Size Location DC'd Fluid/Drip Rate Units RN 03:51 PM 20g 1 1/4" Patent On Arrival Lt Antecubital 0.9NaCl 25 ml/hr Elizabeth Rodriguez RN 03:52 PM 20g 1 1/4" Patent On Arrival Rt Antecubital Allergies No Known Allergies Vital Signs Time BP (mmHg) HR (bpm) O2 Sat. RR (bpm) LOC 03:49 PM 119 / 66 84 95 % 15 5 = Fully awake and oriented or at pre-proc level 03:49 PM / % 5 = Fully awake and oriented or at pre-proc level 04:06 PM / % 4 = Oriented but drowsy 04:21 PM / % 4 = Oriented but drowsy 04:36 PM / % 4 = Oriented but drowsy 04:51 PM / % 4 = Oriented but drowsy 05:18 PM / % 4 = Oriented but drowsy 05:18 PM / % 4 = Oriented but drowsy 05:34 PM / % 4 = Oriented but drowsy 04:00 PM 119 / 66 84 % 25 04:05 PM 128 / 75 84 97 % 9 04:10 PM 107 / 65 84 93 % 19 04:15 PM 107 / 63 85 94 % 31 04:20 PM 108 / 62 85 93 % 24 04:25 PM 110 / 60 87 94 % 17 04:30 PM 83 / 55 84 95 % 30 04:32 PM 92 / 63 80 96 % 17 04:35 PM 91 / 63 75 95 % 13 04:40 PM 84 / 55 77 97 % 32 04:42 PM 88 / 58 77 97 % 35 04:47 PM 77 / 52 74 97 % 23 04:50 PM 95 / 67 101 89 % 17 05:37 PM 114 / 68 89 96 % 12 05:42 PM 114 / 73 91 96 % 17 05:47 PM 117 / 72 89 96 % 29 05:52 PM 123 / 85 122 97 % 23 06:01 PM 80 / 49 107 91 % 34 04:51 PM 103 / 72 105 93 % 18 04:56 PM 106 / 69 110 95 % 37 05:01 PM 111 / 74 111 96 % 26 05:07 PM 101 / 68 92 97 % 20 05:12 PM 98 / 57 84 97 % 17 05:16 PM 106 / 74 96 95 % 23 05:21 PM 117 / 71 96 96 % 25 05:24 PM 116 / 68 95 96 % 19 05:27 PM 113 / 70 93 95 % 21 05:32 PM 110 / 65 93 95 % 16 Procedural Medications Time Medication Dose Units Method Given By 03:58 PM Oxygen 2 L/min nasal cannula Elizabeth Rodriguez RN 04:06 PM Versed 1 mg Intravenous Ivy Posada RN 04:06 PM Fentanyl 50 mcg Intravenous Ivy Posada RN 04:13 PM Lidocaine 2% 18 ml Subcutaneous Eddie Wallace MD 04:32 PM Heparin 3000 units Intravenous Elizabeth Rodriguez RN 04:33 PM Heparin 2000 units Intravenous Elizabeth Rodriguez RN 04:35 PM Aggrastat Bolus: 46 ml Intravenous Ivy Posada RN 04:35 PM Aggrastat 12.5mg/250ml 16.5 ml/hr Intravenous Ivy Posada RN 04:42 PM Dopamine 10 mg/kg/min Intravenous Ivy Posada RN 04:45 PM Heparin 5000 units IntraCoronary Yany Wallace MD 04:47 PM Aggrastat Bolus: 46 ml Intravenous Ivy Posada RN 04:49 PM Oxygen 4 L/min nasal cannula Ivy Posada RN 04:59 PM Dopamine 8 mg/kg/min Intravenous Ivy Posada RN 05:16 PM Dopamine 6 mg/kg/min Intravenous Ivy Posada RN 05:22 PM Dopamine 5 mcg/kg/min Intravenous Ivy Posada RN 05:25 PM Dopamine 4 mcg/kg/min Intravenous Elizabeth Rodriguez RN 05:31 PM Dopamine 3 mcg/kg/min Intravenous Ivy Posada RN 05:42 PM Dopamine 2 mcg/kg/min Intravenous Ivy Posada RN 05:50 PM Versed 1 mg Intravenous Elizabeth Rodriguez RN 05:50 PM Fentanyl 50 mcg Intravenous Elizabeth Rodriguez RN 05:52 PM Heparin 2000 units Intravenous Elizabeth Rodriguez RN 06:02 PM Dopamine 2 mcg/kg/min Intravenous Ivy Posada RN 06:20 PM Heparin 1000 ml/hr Intravenous Ivy Posada RN ASA Classification: CLASS III- Severe systemic disease (i.e. prior AMI, diabetes with vascular complications, morbid obesity) Yoon Score Preprocedure Postprocedure Activity 2- Moves 4 extremities sustained head lift Activity Circulation 2- SBP +/= 20 points of pre-anesthetic level Circulation Consciousness 2- Awake and alert oriented x 3 Consciousness O2 Saturation 2- Able to maintain O2 satruation of 92% on room air O2 Saturation Respiratory 2- Able to deep breathe and cough well Respiratory Total Score 10 Total Score Contrast Agent: Isovue Diagnostic Contrast: 417 ml Total Contrast: 417 ml Fluoro Dose: 4235 mGy Activated Clotting Time Time Seconds to Clot 05:50 PM 189 Procedure Log Time Note Enter By 03:29 PM Patient charges- Angio tray pack, Navilyst 3mm J, Pulse Oximetry and ACIST tubing and transducer [email or web address] 03:49 PM Pt arrived to [employer] [facility] 1 at 15:49 [email or web address] 03:49 PM Time: 15:49 Patient comfortable and pain free: Yes [email or web address] 03:49 PM Time: 15:49LOC: 5 = Fully awake and oriented or at pre-proc level [email or web address] 03:50 PM CathStat 03:51 PM Patricia Devlin (R) Position: Scrub Time in: 15:50 [email or web address] 03:51 PM Ivy Posada RN Position: Electrician Time in: 15:51 [email or web address] 03:51 PM Elizabeth Rodriguez RN Position: Electrician Time in: 15:51 [email or web address] 03:51 PM Clinical Presentation: Non-STEMI [email or web address] 03:56 PM Case Delayed No [email or web address] 03:56 PM Physician arrived 15:56 [email or web address] 03:56 PM Meet and greet completed [email or web address] 03:56 PM Sign in performed according to hospital policy. [email or web address] 03:56 PM Procedure start 15:56 [email or web address] 03:56 PM ASA Class CLASS III- Severe systemic disease (i.e. prior AMI, diabetes with vascular complications, morbid obesity) [email or web address] 03:58 PM Hair removed from procedure site in procedure lab using clippers. Bilateral groin prepped with Chloraprep by Patricia Devlin (R), then patient was draped. Skin intact. 03:58 PM Time: 15:58 Oxygen on at 2 L/min per nasal cannula by Elizabeth Rodriguez RN 03:59 PM Vitals capture started with the following parameters, Patient=Adult, Interval=5 min, Initial Wqmitvqs=481 mmHg, Deflation Rate=3 mmHg, Cuff placed on Right Arm 04:00 PM Recorded ECG: HR=84 Condition=Condition 1 04:00 PM HR=84 bpm, RJYA=215/66 mmhg, Resp=25 B/min 04:05 PM HR=84 bpm, TAGE=988/75 mmhg, SpO2=97.0 %, Resp=9 B/min 04:06 PM Time: 15:49LOC: 5 = Fully awake and oriented or at pre-proc level [email or web address] 04:06 PM Time: 15:49 Patient comfortable and pain free: Yes [email or web address] 04:06 PM Time: 16:06 Versed 1 mg Intravenous Given by Ivy Posada RN 04:06 PM Time: 16:06 Fentanyl 50 mcg Intravenous Given by Ivy Posada RN 04:09 PM Pressure channel 1 zeroed. 04:10 PM HR=84 bpm, VNRW=899/65 mmhg, SpO2=93.0 %, Resp=19 B/min 04:13 PM Time out performed according to hospital policy 04:14 PM Time: 16:13 18 ml Lidocaine 2% to right groin Subcutaneous Given by Eddie Wallace MD 04:14 PM Micro-Introducer Kit utilized for sheath placement bw 04:14 PM hand injected right femoral angio 3cc contrast 04:15 PM HR=85 bpm, CBVI=044/63 mmhg, SpO2=94.0 %, Resp=31 B/min 04:15 PM Access obtained by percutaneous puncture. 6Fr 10cm [place] sheath placed in right Femoral artery. [id number] 04:16 PM 0.035 145cm Navilyst 3mmJ wire [id number] 04:16 PM 5Fr FR 4 catheter inserted over the wire DN 04:17 PM RCA angiography performed in multiple views. 04:17 PM Coronary Dominance: right bw 04:17 PM Catheter removed 04:17 PM 5Fr FL 4 catheter inserted over the wire DN 04:18 PM LCA angiography performed in multiple views. [email or web address] 04:18 PM Recorded Pressure: Ao, HR=85, Condition=Condition 1 (Aorta) Ao 104/51/73 04:20 PM Recorded Pressure: Ao, HR=85, Condition=Condition 1 (Aorta) Ao 83/52/66 04:20 PM HR=85 bpm, RLVS=878/62 mmhg, SpO2=93.0 %, Resp=24 B/min 04:21 PM Time: 16:06 Patient comfortable and pain free: Yes 04:21 PM Time: 16:06LOC: 4 = Oriented but drowsy [email or web address] 04:24 PM Physician reviewing films [email or web address] 04:25 PM HR=87 bpm, FWGF=701/60 mmhg, SpO2=94.0 %, Resp=17 B/min 04:27 PM Catheter removed bw 04:27 PM 6Fr FL4 catheter inserted over the wire [id number] [email or web address] 04:29 PM LCA angiography performed in multiple views. [email or web address] 04:30 PM Recorded Pressure: Ao, HR=84, Condition=Condition 1 (Aorta) Ao 67/46/55 04:30 PM HR=84 bpm, NIBP=83/55 mmhg, SpO2=95.0 %, Resp=30 B/min 04:31 PM Recorded ECG: HR=86 Condition=Condition 1 04:31 PM Vitals capture stopped. 04:31 PM Vitals capture started with the following parameters, Patient=Adult, Interval=5 min, Initial Xvwdgvoh=153 mmHg, Deflation Rate=3 mmHg, Cuff placed on Right Arm 04:32 PM HR=80 bpm, NIBP=92/63 mmhg, SpO2=96.0 %, Resp=17 B/min 04:32 PM Catheter removed [email or web address] 04:32 PM fluids open ivy posada RN [email or web address] 04:32 PM Time: 16:32 Heparin 3000 units Intravenous Given by Elizabeth Rodriguez RN [email or web address] 04:33 PM 6Fr XB LAD 3.5 [place] Bright-Tip guide catheter was used to cannulate the PCI vessel successfully. reused? No [email or web address] 04:34 PM Time: 16:33 Heparin 2000 units Intravenous Given by Elizabeth Rodriguez RN [email or web address] 04:34 PM Lesion found in Proximal RCA. Pre Stenosis: 100 Pre MATIAS Flow: [email or web address] 04:34 PM Right Coronary, Right Posterior Descending Arteries with Right Posterolateral and Acute Marginal branches with 100 % stenosis. If graft is supplying this area, 0 % stenosis [email or web address] 04:34 PM Vitals capture stopped. 04:34 PM Vitals capture started with the following parameters, Patient=Adult, Interval=5 min, Initial Ewkycnpa=983 mmHg, Deflation Rate=3 mmHg, Cuff placed on Right Arm 04:35 PM HR=75 bpm, NIBP=91/63 mmhg, SpO2=95.0 %, Resp=13 B/min 04:35 PM Time: 16:35 Aggrastat Bolus: 46 ml Intravenous Given by Ivy Posada RN Blanton pump [email or web address] 04:36 PM Time: 16:35 Aggrastat 12.5mg/250ml 16.5 ml/hr Intravenous Given by Ivy Posada RN Blanton pump [email or web address] 04:36 PM Time: 16:21LOC: 4 = Oriented but drowsy [email or web address] 04:36 PM Time: 16:21 Patient comfortable and pain free: Yes [email or web address] 04:38 PM Guide catheter removed intact. [email or web address] 04:38 PM 6Fr XB4.0 [place] Bright-Tip guide catheter was used to cannulate the PCI vessel successfully. reused? No [email or web address] 04:38 PM large amounts of clot coming from cook sauce. [email or web address] 04:39 PM .014 [employer] [place] 190cm guide wire across target lesion- successful. reused? No [email or web address] 04:39 PM Vitals capture stopped. 04:39 PM Vitals capture started with the following parameters, Patient=Adult, Interval=5 min, Initial Bgzmcikh=846 mmHg, Deflation Rate=3 mmHg, Cuff placed on Right Arm 04:40 PM HR=77 bpm, NIBP=84/55 mmhg, SpO2=97.0 %, Resp=32 B/min 04:40 PM .014 [place] 300cm guide wire across target lesion- successful. reused? No [email or web address] 04:[address] Gibson paged per Dr. Wallace, Dr. Gibson responded. 04:41 PM Recorded Pressure: Ao, HR=79, Condition=Condition 1 (Aorta) Ao 71/49/59 04:41 PM Physician consulting with Dr. Gibson bw 04:41 PM Vitals capture stopped. 04:41 PM Vitals capture started with the following parameters, Patient=Adult, Interval=5 min, Initial Hftstmhj=778 mmHg, Deflation Rate=3 mmHg, Cuff placed on Right Arm 04:42 PM Time: 16:42 Dopamine 10 mg/kg/min Intravenous Given by Ivy Posada RN Blanton pump 2 04:42 PM HR=77 bpm, NIBP=88/58 mmhg, SpO2=97.0 %, Resp=35 B/min 04:42 PM 2.0 mm x 12 mm Emerge Monorail balloon across target lesion- successful. reused? No bw 04:42 PM Lesion found in Proximal LAD. Pre Stenosis: 100 Pre MATIAS Flow: 2 04:43 PM Proximal Left Anterior Descending Coronary Artery with 100% stenosis. If graft is supplying this territory, 0 % stenosis. [email or web address] 04:44 PM Balloon inflated @ 6 jan for 4 seconds [email or web address] 04:44 PM Balloon inflated @ 4 jan for 4 seconds [email or web address] 04:44 PM IV went bad, changed drips to RT AC IV 2 04:45 PM Time: 16:45 Heparin 5000 units IntraCoronary Given by Yany Wallace MD 04:47 PM Time: 16:47 Aggrastat Bolus: 46 ml Intravenous Given by Ivy Posada RN Blanton pump 04:47 PM HR=74 bpm, NIBP=77/52 mmhg, SpO2=97.0 %, Resp=23 B/min 04:49 PM Pronto V4 thrombectomy pass # 1 04:49 PM NIBP STAT measurement started. 04:49 PM Time: 16:49 Oxygen on at 4 L/min per nasal cannula by Ivy Posada RN 04:50 PM BL=632 bpm, NIBP=95/67 mmhg, SpO2=89.0 %, Resp=17 B/min 04:50 PM Recorded Pressure: Ao, XC=977, Condition=Condition 1 (Aorta) Ao 90/62/75 04:51 PM Vitals capture stopped. 04:51 PM Vitals capture started with the following parameters, Patient=Adult, Interval=5 min, Initial Xxrcafhr=011 mmHg, Deflation Rate=3 mmHg, Cuff placed on Right Arm 04:51 PM Time: 16:36 Patient comfortable and pain free: Yes 04:51 PM Time: 16:36LOC: 4 = Oriented but drowsy bw 04:[address] Gibson in lab discussing films with Dr. Wallace. 04:51 PM QP=809 bpm, FPAZ=158/72 mmhg, SpO2=93.0 %, Resp=18 B/min 04:56 PM CT=437 bpm, YNEQ=015/69 mmhg, SpO2=95.0 %, Resp=37 B/min 04:58 PM 1.5 mm x 15 mm Emerge Monorail balloon across target lesion- successful. reused? No 04:59 PM Time: 16:59 Dopamine 8 mg/kg/min Intravenous Given by Ivy Posada RN Blanton pump 05:00 PM fluids turned down ivy posada RN 05:00 PM Recorded Pressure: Ao, BB=785, Condition=Condition 1 (Aorta) Ao 93/61/76 05:01 PM Balloon inflated @ 6 jan for 4 seconds bw 05:01 PM Balloon inflated @ 6 jan for 4 seconds [email or web address] 05:01 PM Balloon inflated @ 6 jan for 4 seconds [email or web address] 05:01 PM GH=175 bpm, BRAZ=879/74 mmhg, SpO2=96.0 %, Resp=26 B/min 05:02 PM Balloon inflated @ 6 jan for 4 seconds [email or web address] 05:02 PM Balloon inflated @ 12 jan for 8 seconds [email or web address] 05:02 PM Balloon inflated @ 12 jan for 6 seconds [email or web address] 05:03 PM Balloon inflated @ 12 jan for 6 seconds [email or web address] 05:03 PM Balloon inflated @ 12 jan for 6 seconds [email or web address] 05:04 PM Balloon inflated @ 14 jan for 12 seconds [email or web address] 05:04 PM Balloon catheter removed intact. [email or web address] 05:05 PM Recorded Pressure: Ao, HR=86, Condition=Condition 1 (Aorta) Ao 91/55/71 05:06 PM Time: 16:51LOC: 4 = Oriented but drowsy [email or web address] 05:06 PM Time: 16:51 Patient comfortable and pain free: Yes [email or web address] 05:06 PM 2.6ips14ua balloon advanced [email or web address] 05:07 PM HR=92 bpm, TVHR=096/68 mmhg, SpO2=97.0 %, Resp=20 B/min 05:07 PM Balloon inflated @ 10 jan for 6 seconds [email or web address] 05:07 PM Balloon inflated @ 10 jan for 7 seconds [email or web address] 05:08 PM Balloon inflated @ 10 jan for 6 seconds [email or web address] 05:09 PM Balloon inflated @ 10 jan for 20 seconds [email or web address] 05:09 PM Recorded ECG: HR=91 Condition=Condition 1 05:09 PM Balloon inflated @ 10 jan for 20 seconds [email or web address] 05:10 PM Balloon inflated @ 10 jan for 20 seconds [email or web address] 05:10 PM Balloon catheter removed intact. [email or web address] 05:11 PM Guide wire removed intact. [email or web address] 05:11 PM Recorded Pressure: Ao, HR=87, Condition=Condition 1 (Aorta) Ao 83/51/65 05:12 PM HR=84 bpm, NIBP=98/57 mmhg, SpO2=97.0 %, Resp=17 B/min 05:12 PM Guide catheter removed intact. [email or web address] 05:12 PM 5Fr Pigtail catheter inserted over the wire [facility] [email or web address] 05:13 PM Catheter selectively placed in left ventricle [email or web address] 05:13 PM Recorded Pressure: LV, HR=90, Condition=Condition 1 (Left Ventricle) LV 97/4/8 05:14 PM Bolus angiogram of left Ventricle complete: 10 ml/sec for a total of 20 mls 05:15 PM Recorded Pressure: LV, Ao, HR=93, Condition=Condition 1 (Left Ventricle) LV 101/4/8, (Aorta) Ao 96/54/73 05:15 PM Catheter removed 05:16 PM Time: 17:16 Dopamine 6 mg/kg/min Intravenous Given by Ivy Posada RN Blanton pump 05:16 PM HR=96 bpm, RTRZ=147/74 mmhg, SpO2=95.0 %, Resp=23 B/min 05:18 PM Recorded Pressure: Ao, HR=97, Condition=Condition 1 (Aorta) Ao 126/59/81 05:18 PM Time: 17:18 Patient comfortable and pain free: Yes 05:18 PM Time: 17:18LOC: 4 = Oriented but drowsy 05:21 PM HR=96 bpm, BYAK=792/71 mmhg, SpO2=96.0 %, Resp=25 B/min 05:22 PM Time: 17:22 Dopamine 5 mcg/kg/min Intravenous Given by Ivy Posada RN Blanton pump 05:23 PM NIBP STAT measurement started. 05:24 PM HR=95 bpm, NLPN=026/68 mmhg, SpO2=96.0 %, Resp=19 B/min 05:24 PM Recorded Pressure: Ao, HR=95, Condition=Condition 1 (Aorta) Ao 128/58/81 05:25 PM Time: 17:25 Dopamine 4 mcg/kg/min Intravenous Given by Elizabeth Rodriguez RN Blanton pump 05:27 PM HR=93 bpm, UHPP=149/70 mmhg, SpO2=95.0 %, Resp=21 B/min 05:29 PM 6Fr XB4.0 [place] guide catheter was used to cannulate the PCI vessel successfully. reused? Yes 05:31 PM Time: 17:31 Dopamine 3 mcg/kg/min Intravenous Given by Ivy Posada RN Blanton pump 05:32 PM HR=93 bpm, SFWD=489/65 mmhg, SpO2=95.0 %, Resp=16 B/min 05:32 PM Maria Isabel Guerrero RT Position: Scrub Time in: 17:32 to relieve Patricia Devlin RT (R) 05:34 PM Reema Pandya RN Position: Monitor Time in: 17:32 to relieve Cesar Maria Isabel RT 05:34 PM Time: 17:18 Patient comfortable and pain free: Yes 05:34 PM Time: 17:18LOC: 4 = Oriented but drowsy kk 05:35 PM Guide catheter removed intact. [email or web address] 05:35 PM 6Fr CLS 4 [place] guide catheter was used to cannulate the PCI vessel successfully. reused? No [email or web address] 05:37 PM HR=89 bpm, HZNB=794/68 mmhg, SpO2=96.0 %, Resp=12 B/min 05:39 PM Guide catheter removed intact. [email or web address] 05:42 PM HR=91 bpm, VVYD=432/73 mmhg, SpO2=96.0 %, Resp=17 B/min 05:43 PM Time: 17:42 Dopamine 2 mcg/kg/min Intravenous Given by Ivy Posada RN Blanton pump 05:47 PM HR=89 bpm, QKFY=914/72 mmhg, SpO2=96.0 %, Resp=29 B/min 05:48 PM Bed management reports pt will go to ICU room 8 when room is clean. 05:48 PM Perfusion contacted to assist with balloon pump. kk 05:50 PM Time: 17:34LOC: 4 = Oriented but drowsy 05:50 PM Time: 17:34 Patient comfortable and pain free: Yes 05:50 PM At 17:50 the ACT was 189 seconds. 05:50 PM Time: 17:50 Versed 1 mg Intravenous Given by Elizabeth Rodriguez RN 05:51 PM Time: 17:50 Fentanyl 50 mcg Intravenous Given by Elizabeth Rodriguez RN 05:51 PM inserting balloon pump at this time [email or web address] 05:52 PM SN=967 bpm, EIUB=341/85 mmhg, SpO2=97.0 %, Resp=23 B/min 05:52 PM Time: 17:52 Heparin 2000 units Intravenous Given by Elizabeth Rodriguez RN 05:52 PM 8 Fr [place] Balloon Pump IABP catheter inserted into right Femoral artery, 50 cc, *ACC* catheter inserted 1 05:53 PM IABP Settings: 1:1 ratio Pressure trigger [email or web address] 05:54 PM dopamine off at this time [email or web address] 05:54 PM IABP Systemic BP: 123/85 [email or web address] 05:54 PM IABP in Standby mode [email or web address] 05:54 PM IABP resumed inflations [email or web address] 05:55 PM IABP Augmented pressure, mean: 145 [email or web address] 05:55 PM IABP sheath sutured to skin [email or web address] 05:56 PM Recorded ECG: QN=959 Condition=Condition 1 05:59 PM Vitals capture stopped. 06:00 PM NIBP STAT measurement started. 06:01 PM MS=308 bpm, NIBP=80/49 mmhg, SpO2=91.0 %, Resp=34 B/min 06:01 PM Procedure completed at 18:01 [email or web address] 06:02 PM Time: 18:02 Dopamine 2 mcg/kg/min Intravenous Given by Ivy Posada RN Blanton pump [email or web address] 06:03 PM Sign out completed: Radiation Dose 4235.08 mGy Fluoro Time: 22.1 Isovue 370 - 200ml contrast 417 ml given by Eddie Wallace MD. Complications: NoneCardiac Rehab Consult needed: YesConfirmed administered medications: Yes [email or web address] 06:03 PM Isovue 370 - 200ml,3 Bottle(s) used. [email or web address] 06:03 PM Estimated Blood Loss: less than 50cc [email or web address] 06:04 PM Post ECG NSR [email or web address] 06:04 PM Post Blood Pressure 80/49 [email or web address] 06:04 PM Education needs Procedure, Plan of Care, and Responsibilities of Patient in Care [email or web address] 06:04 PM Learning barriers :Sedated [email or web address] 06:04 PM Education Methods Verbal [email or web address] 06:04 PM Site status No bleeding/hematoma - Rt Groin as reported by Maria Isabel Guerrero RT at 18:04 [email or web address] 06:04 PM Opsite applied [email or web address] 06:04 PM Plavix, Effient or Brilinta given No [email or web address] 06:04 PM Delay to floor Bed availability [email or web address] 06:04 PM IV in LAC removed at this time. [email or web address] 06:05 PM no family present at this time. [email or web address] 06:05 PM Fluoro Time: 22.1 [email or web address] 06:05 PM Radiation Dose 4235.08 mGy [email or web address] 06:05 PM Isovue 370 - 200ml contrast [address] Wallace. 06:06 PM IABP Augmented pressure, mean: 119 06:06 PM IABP Systemic BP: 80/49 06:11 PM thomas catheter being inserted per sterile technique per Boo SEGOVIA [email or web address] 06:12 PM Report given to Eliot SEGOVIA Pt taken to ICU Room #03. 18:12 ner 06:12 PM Lesion found in LMCA. Pre Stenosis: 70 Pre MATIAS Flow: 06:20 PM Time: 18:20 Heparin 1000 units/hr Intravenous Given by Ivy Posada RN Blanton pump [email or web address] 06:21 PM Patient out of room: 18:21 [email or web address] Complications Complication None Hemodynamics Pressures Site Systolic/A Wave Diastolic/V Wave Mean AO 104 51 73 AO 83 52 66 AO 67 46 55 AO 71 49 59 AO 90 62 75 AO 93 61 76 AO 91 55 71 AO 83 51 65 LV 97 4 8 LV 101 4 8 AO 96 54 73 AO 126 59 81 AO 128 58 81 Post Procedure Information Blood Pressure: 80/49 mmHg Rhythm: NSR Post procedural instructions were given Site Checks Time Location Status Staff Sheath In? Note 06:04 PM Rt Groin No bleeding/hematoma Maria Isabel Guerrero RT Pulses Time Site Pre-Procedure Post-Procedure Note 12/14/2017 3:52:00 PM Bilateral DP & PT 1+ Updated by Maria Isabel Guerrero RT (R) on 12/14/2017 6:25:22 PM electronically signed on 12/14/2017 6:26:14 PM with status of Final
[2017-12-14] MEDS ORDERED: Lidocaine -MPF 1% 5 ML AMPUL ONE (20:01)
[2017-12-14] MEDS: risperiDONE 1 MG TABLET PO SCH (20:21)
[2017-12-14] MEDS: Melatonin 3 MG TABLET PO SCH (20:21)
[2017-12-14] MEDS: Divalproex (24 HR) 500 MG TABLET PO SCH (21:05)
[2017-12-15] MEDS: Tirofiban 12.5 MG/250ML 12.5 MG/250 ML BAG IVC SCH (01:49)
[2017-12-15 04:39] LABS: Basophils % 0.1 %; Eosinophils # 0.1 K/mcL (0.0-0.6); Eosinophils % 0.5 %; Hematocrit 29.4 % (37.5-50.1); Hemoglobin 10.2 g/dL (12.9-16.9); Immature Granulocytes % 0.5 % (0-4); Lymphocytes # 0.9 K/mcL (0.6-4.6); Lymphocytes % 9.5 %; Mean Corpuscular HGB Conc 34.7 g/dL (31.6-35.5); Mean Corpuscular Hemoglobin 31.8 pg (28.0-33.3); Mean Corpuscular Volume 91.6 fL (83.0-100.0); Mean Platelet Volume 9.2 fL (9.4-12.4); Monocytes # 0.9 K/mcL (0.0-1.3); Monocytes % 9.2 %; Neutrophils # 7.6 K/mcL (1.6-8.9); Platelet Count 270 K/mcL (140-400); Red Blood Count 3.21 M/mcL (4.19-5.50); Red Cell Distribution Width 12.6 % (11.5-14.5); Segmented Neutrophils % 80.2 %
[2017-12-15 04:54] LABS: BUN/Creatinine Ratio 23 (6-26); Blood Urea Nitrogen 17 mg/dL (8-23); Calcium 8.2 mg/dL (8.6-10.3); Carbon Dioxide 24 mEq/L (23-29); Chloride 107 mEq/L (98-107); Glucose 115 mg/dL (70-105); Osmolality,Calculated 286 (280-300); Potassium 3.9 mEq/L (3.5-5.1); Sodium 137 mEq/L (136-145); eGFR For African Americans > 60 (> 60); eGFR For Non-African Americans > 60 (> 60)
[2017-12-15 05:54] LABS: Adenovirus Not Detected (Not Detect); Bordetella Pertussis Not Detected (Not Detect); Chlamydophila pneumoniae Not Detected (Not Detect); Coronavirus 229E Not Detected (Not Detect); Coronavirus HKU1 Not Detected (Not Detect); Coronavirus NL63 Not Detected (Not Detect); Coronavirus OC43 Not Detected (Not Detect); Human Metapneumovirus Not Detected (Not Detect); Human Rhinovirus/Enterovirus Not Detected (Not Detect); Influenza A Subtype 2009 H1 Not Detected (Not Detect); Influenza A Untypeable Not Detected (Not Detect); Influenza B Not Detected (Not Detect); Mycoplasma pneumoniae Not Detected (Not Detect); Parainfluenza Virus 1 Not Detected (Not Detect); Parainfluenza Virus 2 Not Detected (Not Detect); Parainfluenza Virus 3 Not Detected (Not Detect); Parainfluenza Virus 4 Not Detected (Not Detect); Respiratory Syncytial Virus Not Detected (Not Detect)
[2017-12-15] MEDS: Cefepime HCl 1,000 MG in 0.9 % Sodium Chloride Mini Bag 100 ML IVPB SCH (05:58)
[2017-12-15] MEDS: Levofloxacin 750 MG/150 ML 750 MG/150 ML BAG IVPB SCH (08:08)
[2017-12-15] MEDS: Aspirin Enteric Coated 81 MG Tablet PO SCH (08:08)
[2017-12-15] MEDS: OXYCODONE Oral CONC 10 MG/0.5 ML ORAL.SYG SL PRN ×2 (08:09→14:33)
--- NOTE | 2017-12-15 09:03 | Cardiothoracic Consult Note ---
Date of Encounter: 12/15/17 Time of Encounter: 08:55 Assessment and Plan (1) Non-STEMI (non-ST elevated myocardial infarction) Current Visit: Yes Status: Acute The patient is a 72-year-old man with known CAD who was transferred to [facility] from the [facility] with a diagnosis of an acute NSTEMI. He underwent cardiac catheterization yesterday and was found to have severe two-vessel CAD. In particular, the patient has a 70% proximal left main lesion and a completely occluded proximal RCA which fills distally via faint after right collaterals. He then had an acute thrombotic event involving the proximal LAD and proximal LCx after the catheter had engaged the left main artery. The patient had neck pain and associated hypotension immediately after the thrombotic event. When I evaluated him in the authorization lab he was on high-dose dopamine drip (10mg/kg/min) and his systolic pressure was 60-70 mmHg. The patient underwent aspiration of the LAD clot with reestablishment of flow in the proximal and mid portions of the LAD. The distal portion however had poor blood flow due to retained clot. The patient had been placed on Aggrastat and had gradual improvement of his cardiac function. An intra-aortic balloon pump was placed. A lengthy discussion was had the equipment mechanic regarding the timing of CABG versus high risk LM PCI with stent placement. My main concern for emergent or emergent salvage CABG last night was if the patient has retained thrombus in both the LAD and LCx, the CABG will be of little to no benefit. This would be particularly true of the SANCHES to LAD graft if there is no distal outflow given the current location of the thrombus. Furthermore, the patient will need to be off anticoagulants for at least 2-3 days postoperatively to minimize the risk of postoperative bleeding. If thrombus remains in the LAD and/or the LCx and the patient is off anticoagulanats, the thrombus could propagate, again negating the benefit of CABG. The STS risk calculator shows an operative mortality risk for an emergent salvage operation of 10%, permanent stroke risk 0.96%, deep sternal wound infection 0.56%, renal failure risk 3.16%, and reoperation risk 12%. If the operation is performed as an urgent case once the patient is stabilized, the operative mortality risk decreases to 2.1% with a concomitant decrease in the other risks. I believe that the patient should undergo repeat cardiac catheterization today to reassess the presence of LAD and LCx thrombus. The patient should remain anticoagulated throughout the weekend in hopes of eliminating the remaining thrombus and/or preventing subsequent recurrent thrombosis. The balloon pump could be weaned and removed later today or tomorrow since it was placed mainly for hemodynamic support after the acute thrombotic event which resulted in poor anterior wall motion and hypotension with concomitant cardiogenic shock. Currently the patient is maintaining adequate blood pressure with minimal inotropic support. The assessment and plan as outlined above was discussed with the cardiology service and the patient and/or family members who expressed understanding and agreement. All questions were answered. - History of Present Illness Consult date: 12/14/17 Requesting physician: Eddie Wallace Consult reason: CABG consult Chief complaint: NSTEMI History of present illness: Mr. Ballard is a 72 year old man with known CAD was transferred to [facility] with a diagnosis of an acute NSTEMI. The patient is a poor historian; however, states that he underwent RCA stent placement approximately 10 years ago at [facility] in [facility]. He states that he had no further cardiac symptoms until July 2017 when he experienced carbon monoxide poisoning. At that time he experienced syncopal episode and was evaluated at [facility]. He had elevated carbon monoxide levels and was treated medically. He was transferred to [facility] for further care, but was not diagnosed with an acute coronary syndrome. Recently, the patient has complained of shortness of breath and dyspnea on exertion. The patient had substernal chest pain on , 12/13/2017 and was evaluated at the [facility]. He had evidence of anterior ischemia on his ECG and his troponin I levels were elevated. He was transferred to [facility] for further cardiac care. Yesterday, the patient underwent cardiac catheterization and had an acute thrombotic event involving the LAD and LCx. After the catheter had engaged the left main he had an acute thrombosis of the LAD with no distal flow. Clot was also noted in the proximal LCx. I was asked to evaluate the patient in the cardiac catheterization lab and at that point the patient was on high-dose dopamine drip with a systolic blood pressure of 60-70 mmHg. The LAD clot was suctioned with reestablishment of flow in the proximal and midportion of the LAD; however, the distal portion had poor flow. The patient gradually stabilized and an intra-aortic balloon pump was placed. The patient was referred for urgent CABG. Past Med Surg Social Fam HX - Past Medical History Medical history: coronary artery disease, myocardial infarction, other ( Peripheral neuropathy) Additional medical history: paranoid personality disorder, neuropathy, dementia with behavioral distrubances Psychiatric history: anxiety, panic disorder, PTSD, schizophrenia, other - Past Surgical History Additional surgical history: abd sx from tree injury - Social History Smoking Status: Former smoker Packs per day: Quit smoking 40-50 years ago Smokeless Tobacco Status: No Alcohol use: none Drug use: none Occupational status: retired Current living situation: Home - Independent Activity Level: Independent ambulation Recent Out of Country Travel Within the Last 8 Weeks: No Exposure or Possible Exposure to Illness During Travel: No - Family History Father Living Status: Hx Family Cardiac Disorders: Yes (heart attack) Medications and Allergies Acetaminophen [Non-Aspirin] 325 mg PO Q8H PRN 12/13/17 [History] Aspirin Enteric Coated [Aspirin EC] 81 mg PO DAILY 12/13/17 [History] Atorvastatin [Lipitor] 40 mg PO HS 12/13/17 [History] Cholecalciferol (D-3) [Vitamin D] 2,000 unit PO DAILY 12/13/17 [History] Divalproex (24 HR) [Depakote ER (24 HR)] 500 mg PO HS 12/13/17 [History] Donepezil [Aricept] 5 mg PO HS 12/13/17 [History] Mag Hydrox/Al Hydrox/Simeth [Antacid II-Simethicone Liq] 30 ml PO Q6H PRN [History] Meclizine HCl [Verticalm] 25 mg PO BID PRN 12/13/17 [History] Melatonin [Melatin] 9 mg PO HS 12/13/17 [History] Naproxen [Naprosyn] 500 mg PO BID 12/13/17 [History] Trazodone HCl 25 mg PO HS PRN 12/13/17 [History] risperiDONE [Risperidone] 1 mg PO HS 12/13/17 [History] 3 Allergy/AdvReac Type Severity Reaction Status Date / Time No Known Allergies Allergy Verified 07/23/17 13:11 All Systems Review: The remainder of the systems were reviewed and are negative Physical Examination Vital Signs, Last 4 Hours Pulse Resp BP Pulse Ox 12/15/17 08:00 87 12/15/17 06:57 90 16 108/64 93 12/15/17 06:00 93 20 100/62 93 12/15/17 05:00 93 20 103/63 92 General: Conversant, No Apparent Distress HEENT: Atraumatic, Normocephaly, Trachea midline Neck: No JVD, Normal carotid pulses Cardiac: Reg Rate and Rhythm, Normal S1 and S2, No Murmur Lungs: Normal Breath Sounds, No Wheeze, Rales, Rhonchi Neuro: Alert and responsive, No focal deficits noted Vascular: Normal capillary refill Abdomen: Soft, Non-tender Extremities: No Clubbing, No Cyanosis, No Edema, Normal Pulses Results 12/15/17 04:15 12/15/17 04:15 Lab Results, Last 24 hours 12/14/17 12/14/17 12/14/17 08:22 14:54 19:51 WBC Hgb Hct Plt Count APTT 72.5 H D 50.7 H 71.6 H Sodium Potassium Chloride Carbon Dioxide BUN Creatinine Glucose Calcium 12/15/17 12/15/17 12/15/17 04:15 04:15 04:15 WBC 9.5 Hgb 10.2 L Hct 29.4 L Plt Count 270 APTT 81.6 H Sodium 137 Potassium 3.9 Chloride 107 Carbon Dioxide 24 BUN 17 Creatinine 0.73 Glucose 115 H Calcium 8.2 L - Imaging Chest Xray: image reviewed (Normal cardiac size. Small left pleural effusion with associated atelectasis.) Consult Discharge Plan - Plan [facility]errals: [facility] [Primary Care Provider] -
[2017-12-15] MEDS: 0.9 % Sodium Chloride 1,000 ML IVC SCH (09:33)
--- NOTE | 2017-12-15 13:17 | Discharge Summary ---
Orders not resulted at time of discharge: Pending orders 12/13/17 16:23 Culture,Blood [BC] Stat 12/14/17 19:00 ECG 12 lead ECG [ECG] Routine Date of Encounter: 12/15/17 Time of Encounter: 08:40 - Discharge Diagnosis (1) CAD (coronary artery disease) Priority: Secondary Status: Chronic Qualifiers: Coronary Disease-Associated Artery/Lesion type: [place] artery [place] vs. transplanted heart: [place] heart Associated angina: without angina Qualified Code(s): I25.10 - Atherosclerotic heart disease of [place] coronary artery without angina pectoris (2) PTSD (post-traumatic stress disorder) Priority: Secondary Status: Chronic (3) Schizophrenia Priority: Secondary Status: Chronic Qualifiers: Schizophrenia type: paranoid schizophrenia Qualified Code(s): F20.0 - Paranoid schizophrenia (4) Non-STEMI (non-ST elevated myocardial infarction) Priority: Primary Status: Acute (5) HCAP (healthcare-associated pneumonia) Priority: Primary Status: Acute (6) Hyperlipidemia Priority: Secondary Status: Chronic Qualifiers: Hyperlipidemia type: unspecified Qualified Code(s): E78.5 - Hyperlipidemia , unspecified Hospital course: Mr. Ballard is a 72 year old male with the above medical problems, who was sent from [place] inpatient psychiatry unit with complaints of chest pain. He was noted to have non-ST elevation AR with troponin leak. He was started on anti- coagulation with IV heparin drip along with aspirin, Plavix, beta chencho and statin per ACS protocol. Echocardiogram showed preserved ejection fraction and normal right ventricular structure and function. Cardiology was consulted and patient underwent left heart catheterization showing severe three-vessel disease. Patient then had an acute thrombotic event in the proximal LAD during the procedure associated with neck pain and hypotension. He was started on vasopressor support with IV dopamine along with intra-aortic balloon pump, and underwent aspiration of LAD clot with reestablishment of flow in the proximal and mid portions of the LAD, however distal portion had poor blood flow due to retained clot. Patient was evaluated by cardiothoracic surgery and cardiology today and recommended transfer to tertiary care center for high risk PCI versus CABG. Transfer was arranged by cardiology service and patient is medically stable for discharge. Discharge discussed with: patient, family, incident response consultant - Time Spent with Patient Total time spent providing and/or coordinating discharge services: Greater than 30 minutes (45 min) - Discharge Medications Home Medications: Acetaminophen [Non-Aspirin] 325 mg PO Q8H PRN 12/13/17 [History] Aspirin Enteric Coated [Aspirin EC] 81 mg PO DAILY 12/13/17 [History] Atorvastatin [Lipitor] 40 mg PO HS 12/13/17 [History] Cholecalciferol (D-3) [Vitamin D] 2,000 unit PO DAILY 12/13/17 [History] Divalproex (24 HR) [Depakote ER (24 HR)] 500 mg PO HS 12/13/17 [History] Donepezil [Aricept] 5 mg PO HS 12/13/17 [History] Mag Hydrox/Al Hydrox/Simeth [Antacid II-Simethicone Liq] 30 ml PO Q6H PRN [History] Meclizine HCl [Verticalm] 25 mg PO BID PRN 12/13/17 [History] Melatonin [Melatin] 9 mg PO HS 12/13/17 [History] Trazodone HCl 25 mg PO HS PRN 12/13/17 [History] risperiDONE [Risperidone] 1 mg PO HS 12/13/17 [History] Heparin 2,000 unit IVP Q6H PRN vial 12/15/17 [Rx] Heparin 4,000 unit IVP Q6HR PRN vial 12/15/17 [Rx] Nitroglycerin 0.4 mg SL Q5MIN PRN tab.subl 12/15/17 [Rx] Omeprazole [PriLOSEC] 40 mg PO DAILY@0630 capsule.dr 12/15/17 [Rx] Allergies/Adverse Reactions: 3 Allergy/AdvReac Type Severity Reaction Status Date / Time No Known Allergies Allergy Verified 07/23/17 13:11 Date of admission: 12/13/17 13:20 [facility] physician: [facility] Consults: 12/13/17 15:15 Consult to Speech Therapy [CONS] Routine Comment: Evaluate, develop and implement POC Reason for Consult: aspiration Call Completed: No 12/14/17 11:12 Consult to Cardiac Rehabilitation-Phase1 [CONS] Routine Comment: Reason for Consult: NSTEMI Call Completed: No 12/14/17 19:00 Consult to Cardiac Rehabilitation-Phase1 [CONS] Routine Comment: Reason for Consult: AMI Call Completed: Yes Consult to Nurse Navigator [CONS] Routine Comment: 12/15/17 08:48 Consult to Cardiothoracic Surgery [CONS] Routine Consulting Provider: Cardiothoracic Surgery Emmy Reason for Consult: spoke with yesterday. Call Completed: Yes Discharging clinician: Mary Valdez Anticipated date of discharge: 12/15/17 - Constitutional Vitals: Temp Pulse Resp BP Pulse Ox 99.0 F 87 18 95/53 95 12/15/17 08:00 12/15/17 12:00 12/15/17 12:00 12/15/17 12:00 12/15/17 12:00 General appearance: Present: A&O X 3, answers questions appropriately - Cardiovascular Cardiovascular exam: Present: RRR, +S1, +S2. Absent: diastolic murmur, gallop, rubs, systolic murmur Additional comments: on intraaortic balloon pump - Patient Status Disposition: Transfer Other Condition: Serious Functional capacity at discharge: bed bound Overall status at discharge: patient is not back to baseline - Discharge Instructions [facility] Up With: [facility] [Primary Care Provider] - - Diet and Activity Diet: low fat, low cholesterol, low salt diet
[2017-12-15] MEDS: Heparin 25,000 UNIT/500 ML D5W 25,000 UNIT/500 ML BAG IVC SCH (13:57)
[2017-12-15 14:22] VITALS: BP 98/53
--- NOTE | 2017-12-17 21:35 | Electrocardiograph Report ---
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
--- NOTE | 2017-12-17 21:40 | Electrocardiograph Report ---
[address] [place] [address] Test Date: 2017-12-15 Pat Name: Radu Ballard Department: 109 Room: [facility] Gender: M [place]t: : 1945 Requested By: Eddie Wallace Order Number: [id number] Reading MD: Dangelo Hutton Measurements Intervals [place] Rate: 96 P: 62 [place]: 136 QRS: -2 QRSD: 95 T: -36 QT: 404 QTc: 458 Interpretive Statements SINUS RHYTHM LOW QRS VOLTAGE IN EXTREMITY LEADS MODERATE T-WAVE ABNORMALITY, CONSIDER ANTERIOR ISCHEMIA Electronically Signed On 12-17-2017 21:38:46 EDT by Dangelo Hutton
--- NOTE | 2017-12-17 21:40 | Electrocardiograph Report ---
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
== END 2017-12-15 14:55 | disposition other institution (70) | DRG 228 ==
LOC: EMEROO 10:32 → SUATTDRO 13:20 → 3BNU 13:20 → MERGE 13:20 → 3BNU 14:14 → ICNU 12-14 18:36
PROVIDERS: ADMIT Family Medicine; ATTEND Internal Medicine

== ENCOUNTER 2018-04-20 16:12 | Inpatient (IN) ==
[2018-04-20] MEDS ORDERED: 0.9 % Sodium Chloride 500 ML IVC ONE (16:33)
[2018-04-20 17:05] LABS: Basophils % 0.6 %; Eosinophils # 0.2 K/mcL (0.0-0.6); Eosinophils % 2.9 %; Hemoglobin 9.5 g/dL (12.9-16.9); Immature Granulocytes % 0.2 % (0-4); Lymphocytes # 1.3 K/mcL (0.6-4.6); Mean Corpuscular HGB Conc 31.7 g/dL (31.6-35.5); Mean Corpuscular Hemoglobin 29.1 pg (28.0-33.3); Mean Corpuscular Volume 91.7 fL (83.0-100.0); Mean Platelet Volume 9.9 fL (9.4-12.4); Monocytes # 0.4 K/mcL (0.0-1.3); Monocytes % 7.4 %; Neutrophils # 3.2 K/mcL (1.6-8.9); Platelet Count 221 K/mcL (140-400); Red Blood Count 3.27 M/mcL (4.19-5.50); Segmented Neutrophils % 62.9 %
[2018-04-20 17:09] LABS: Prothrombin Time 11.2 Seconds (9.4-12.1)
[2018-04-20 17:21] LABS: Albumin 3.6 g/dL (3.5-5.7); Albumin/Globulin Ratio 1.6 (1.1-2.2); Bilirubin,Direct 0.2 mg/dL (0.0-0.2); Bilirubin,Indirect 0.2 mg/dL (0.0-1.2); Bilirubin,Total 0.4 mg/dL (0.3-1.0); Globulin 2.3 g/dL (2.4-3.5); Total Protein 5.9 g/dL (6.4-8.9)
[2018-04-20 17:23] LABS: Troponin I < 0.03 ng/mL (< 0.04)
[2018-04-20 17:27] LABS: BUN/Creatinine Ratio 22 (6-26); Blood Urea Nitrogen 19 mg/dL (8-23); Calcium 9.2 mg/dL (8.6-10.3); Carbon Dioxide 24 mEq/L (23-29); Chloride 108 mEq/L (98-107); Glucose 141 mg/dL (70-105); Osmolality,Calculated 297 (280-300); Sodium 141 mEq/L (136-145); eGFR For Non-African Americans > 60 (> 60)
--- NOTE | 2018-04-20 17:52 | Emergency Department Note ---
Disposition Clinical Impression: Chest pain Qualifiers: Chest pain type: unspecified Qualified Code(s): R07.9 - Chest pain, unspecified Disposition: Admitted As Inpatient Condition: Good [facility]Primary Care Provider[facility] - Forms: ED Satisfaction Letter Chest Pain HPI - General Chief Complaint: ED Chest Pain Stated Complaint: CP Time Seen by Provider: 04/20/18 16:15 Source: EMS Limitations: no limitations Vital Signs Reviewed: Yes Nursing Notes Reviewed: Yes - History of Present Illness HPI Narrative: Patient presents to the emergency department from [place] urgent care for evaluation of chest pain. Received aspirin prior to arrival. Patient had been seen and evaluated there week prior for evaluation of concern for GI bleeding. Patient noticed bright blood in his stools and at that time and recommended that he stop taking his aspirin and his Plavix. The patient was seen there again today as he started developing chest pain earlier in the day. Chest pain is described as a pressure that radiates up to the jaw. Does have a history of cardiac disease and this feels similar. The patient did have an EKG performed which does not show any significant changes. He does have T-wave inversions and concern for mild depression in V2 V3 less than 1 mm. EKG was compared to old previous and the patient had similar changes but without the depressions from 12/27/17. Patient is not been complaining of any shortness of breath or abdominal pain. Patient does not have a significant swelling in his lower shortness. Patient will undergo further evaluation for both GI bleed as well as chest pain. Severity scale (1-10): 2 - Related Data Home Medications Medication Instructions Recorded Confirmed Acetaminophen [Non-Aspirin] 325 mg PO Q8H PRN 12/13/17 04/20/18 Aspirin Enteric Coated [Aspirin EC] 81 mg PO DAILY 12/13/17 04/20/18 Atorvastatin [Lipitor] 40 mg PO HS 12/13/17 04/20/18 Meclizine HCl [Verticalm] 25 mg PO BID PRN 12/13/17 04/20/18 ARIPiprazole [Abilify] 5 mg PO DAILY 04/20/18 04/20/18 Clopidogrel [Plavix] 75 mg PO DAILY 04/20/18 04/20/18 Divalproex (24 HR) [Depakote ER 250 mg PO HS 10/05/18 10/05/18 (24 HR)] Ferrous Sulfate [Iron] 325 mg PO BID 04/20/18 04/20/18 Metoprolol Succinate [Toprol Xl] 25 mg PO DAILY 04/20/18 04/20/18 Multivitamin [One Daily Essential] 1 tab PO DAILY 04/20/18 04/20/18 Pantoprazole Sodium [Protonix] 40 mg PO DAILY 04/20/18 04/20/18 Sennosides/Docusate Sodium 1 tab PO DAILY 04/20/18 04/20/18 [Docusate Sodium-Senna Tablet] Allergies Allergy/AdvReac Type Severity Reaction Status Date / Time No Known Allergies Allergy Verified 04/20/18 16:26 Review of Systems: CONSTITUTIONAL: No weight loss, fever, chills, weakness or fatigue. HEENT: Eyes: No visual changes. Ears, Nose, Throat: No hearing loss, difficulty talking or unable to swallow. SKIN: No rash or itching. CARDIOVASCULAR: Chest pain with associated nausea and diaphoresis RESPIRATORY: No shortness of breath, cough or sputum. GASTROINTESTINAL: Nausea No anorexia, vomiting or diarrhea. No abdominal pain or blood. GENITOURINARY: No burning on urination or hematuria. NEUROLOGICAL: No headache, dizziness, syncope, paralysis, ataxia, numbness or tingling in the extremities. No change in bowel or bladder control. MUSCULOSKELETAL: No muscle pain, back pain, joint pain or stiffness. Chest Pain PMH - Past Medical History Medical history: Reports: myocardial infarction, other, coronary artery disease Surgical history: Reports: other Psychiatric history: Reports: other, anxiety, panic disorder, PTSD, schizophrenia - Social History Smoking Status: Former smoker Alcohol use: Reports: none Drug use: Reports: none Physical Exam General: Well appearing, nontoxic, no acute distress; no diaphoretic on evaluation Head: Normocephalic Atraumatic Eyes: PERRL, EOMI ENT: Airway patent, no stridor Neck: supple, no meningismus Chest: Lungs clear to auscultation bilateral Cardiac: Regular rate and rhythm, no murmurs, rubs or gallops Abdomen: soft, nontender, nondistended; no guarding, rebound, or tenderness to percussion Musculoskeletal: Calves symmetric, nontender, no significant peripheral edema Skin: No rash, normal skin tone Neuro: Alert and Oriented to person, place, and time; No focal deficit, CN 2-12 symmetric and intact Hemoccult was not grossly bloody. Patient did not have any significant hemorrhoids on exam. Hemoccult sent for further testing. - General Limitations: no limitations General appearance: alert, in no apparent distress Course - Reevaluation(s) Reevaluation #1: Patient's blood pressure is 99 systolic. Patient will receive further fluid bolus as well as pain medication. Patient will not receive fresh glycerin at this time secondary to low blood pressure. The patient's pressure had been 130s prior to his initial much glycerin given at the urgent care prior to arrival. The patient left repeat EKG. Patient will be admitted for further workup. - Consultations Consultation #1: Discussed hospitalist. Patient accepted for admission. Vital Signs Temperature 97.9 F 04/20/18 16:19 Pulse Rate 67 04/20/18 16:19 Respiratory Rate 16 04/20/18 16:19 Blood Pressure 101/61 04/20/18 16:19 O2 Sat by Pulse Oximetry 100 04/20/18 16:19 Temperature 97.9 F 04/20/18 16:19 Pulse Rate 60 04/20/18 17:13 Respiratory Rate 12 04/20/18 17:13 Blood Pressure 98/60 04/20/18 17:13 O2 Sat by Pulse Oximetry 98 04/20/18 17:13 Oxygen Delivery Oxygen Delivery Room Air Chest Pain - Medical Records Medical records reviewed: Yes I reviewed the patient's medical records. - Lab Data Lab results reviewed: Yes I reviewed the patient's lab results. Result diagrams: 04/20/18 16:48 04/20/18 16:48 Lab Results 04/20/18 04/20/18 04/20/18 Range/Units 16:48 16:48 16:48 WBC 5.1 (4.3-11.1) K/mcL RBC 3.27 L (4.19-5.50) M/mcL Hgb 9.5 L (12.9-16.9) g/dL Hct 30.0 L (37.5-50.1) % MCV 91.7 (83.0-100.0) fL MCH 29.1 (28.0-33.3) pg MCHC 31.7 (31.6-35.5) g/dL RDW 13.0 (11.5-14.5) % Plt Count 221 (140-400) K/mcL MPV 9.9 (9.4-12.4) fL Immature Gran % 0.2 (0-4) % Seg Neutrophils % 62.9 % Lymphocytes % 26.0 % Monocytes % 7.4 % Eosinophils % 2.9 % Basophils % 0.6 % Neutrophils # 3.2 (1.6-8.9) K/mcL Lymphocytes # 1.3 (0.6-4.6) K/mcL Monocytes # 0.4 (0.0-1.3) K/mcL Eosinophils # 0.2 (0.0-0.6) K/mcL Basophils # 0.0 (0.0-0.2) K/mcL PT 11.2 (9.4-12.1) Seconds INR 1.0 Sodium 141 (136-145) mEq/L Potassium 4.0 (3.5-5.1) mEq/L Chloride 108 H (98-107) mEq/L Carbon Dioxide 24 (23-29) mEq/L BUN 19 (8-23) mg/dL Creatinine 0.86 (0.70-1.30) mg/dL Est GFR ( Amer) > 60 (> 60) Est GFR (Non-Af Amer) > 60 (> 60) BUN/Creatinine Ratio 22 (6-26) Glucose 141 H (70-105) mg/dL Calculated Osmolality 297 (280-300) Calcium 9.2 (8.6-10.3) mg/dL Total Bilirubin (0.3-1.0) mg/dL Direct Bilirubin (0.0-0.2) mg/dL Indirect Bilirubin (0.0-1.2) mg/dL AST (13-39) Units/L ALT (7-52) Units/L Alkaline Phosphatase (34-104) Units/L Troponin I < 0.03 (< 0.04) ng/mL Serum Total Protein (6.4-8.9) g/dL Albumin (3.5-5.7) g/dL Globulin (2.4-3.5) g/dL Albumin/Globulin Ratio (1.1-2.2) Blood Type Antibody Screen 04/20/18 04/20/18 Range/Units 16:48 16:48 WBC (4.3-11.1) K/mcL RBC (4.19-5.50) M/mcL Hgb (12.9-16.9) g/dL Hct (37.5-50.1) % MCV (83.0-100.0) fL MCH (28.0-33.3) pg MCHC (31.6-35.5) g/dL RDW (11.5-14.5) % Plt Count (140-400) K/mcL MPV (9.4-12.4) fL Immature Gran % (0-4) % Seg Neutrophils % % Lymphocytes % % Monocytes % % Eosinophils % % Basophils % % Neutrophils # (1.6-8.9) K/mcL Lymphocytes # (0.6-4.6) K/mcL Monocytes # (0.0-1.3) K/mcL Eosinophils # (0.0-0.6) K/mcL Basophils # (0.0-0.2) K/mcL PT (9.4-12.1) Seconds INR Sodium (136-145) mEq/L Potassium (3.5-5.1) mEq/L Chloride (98-107) mEq/L Carbon Dioxide (23-29) mEq/L BUN (8-23) mg/dL Creatinine (0.70-1.30) mg/dL Est GFR ( Amer) (> 60) Est GFR (Non-Af Amer) (> 60) BUN/Creatinine Ratio (6-26) Glucose (70-105) mg/dL Calculated Osmolality (280-300) Calcium (8.6-10.3) mg/dL Total Bilirubin 0.4 (0.3-1.0) mg/dL Direct Bilirubin 0.2 (0.0-0.2) mg/dL Indirect Bilirubin 0.2 (0.0-1.2) mg/dL AST 12 L (13-39) Units/L ALT 12 (7-52) Units/L Alkaline Phosphatase 67 (34-104) Units/L Troponin I (< 0.04) ng/mL Serum Total Protein 5.9 L (6.4-8.9) g/dL Albumin 3.6 (3.5-5.7) g/dL Globulin 2.3 L (2.4-3.5) g/dL Albumin/Globulin Ratio 1.6 (1.1-2.2) Blood Type O POSITIVE Antibody Screen NEGATIVE - Radiology Data Radiology results reviewed: Yes I reviewed the patient's radiology results. - EKG Data EKG attestation: Yes I reviewed and interpreted this EKG. EKG results narrative: EKG shows T-wave depression of less than 1 mm in V2 and V3. No skin changes from previous EKG. EKG shows normal: sinus rhythm Rate: normal Rhythm: NSR When compared to previous EKG there are: changes noted Interpretation: nonspecific ST-T wave changes
[2018-04-20] MEDS ORDERED: 0.9 % Sodium Chloride 1,000 ML IVC ONE (18:14)
[2018-04-20] MEDS ORDERED: *HR* OxyCODONE Immed Rel 5 MG TABLET PO STA (18:14)
[2018-04-20] MEDS ORDERED: Acetaminophen 325 MG TABLET PO PRN (18:58)
[2018-04-20] MEDS ORDERED: traMADol 50 MG TABLET PO PRN (19:01)
[2018-04-20] MEDS ORDERED: Naloxone 0.4 MG/ML INJ IVP PRN (19:01)
--- NOTE | 2018-04-20 19:11 | Internal Med History&Physical ---
Date of Encounter: 04/20/18 Time of Encounter: 19:07 Internal Medicine - H&P: HPI Admitted From: Home Plans for Post Hospital Care: Home History of present illness: Mr. Ballard is a 72 year old male hospitalized in July for chest parks, s/p several stents placement, presents to the emergency department from [place] urgent care for evaluation of chest pain. Received aspirin prior to arrival. Patient had been seen and evaluated three weeks prior for evaluation of GI bleeding. Patient noticed bright blood in his stools and at that time and recommended that he stop taking his aspirin and his Plavix. The patient was seen there again today as he started developing chest pain earlier in the day. Chest pain is described as a pressure that radiates up to the jaw. Does have a history of cardiac disease and this feels similar. The patient did have an EKG performed which had T-wave inversions in V2, V3 and V4. Patient is not been complaining of any shortness of breath or abdominal pain. Patient does not have a significant swelling in his lower extremities. Patient will undergo further evaluation for both GI bleed as well as chest pain. Past Med Surg Social Fam HX - Past Medical History Medical history: myocardial infarction, other, coronary artery disease Additional medical history: paranoid personality disorder, neuropathy, dementia with behavioral distrubances Psychiatric history: other, anxiety, panic disorder, PTSD, schizophrenia - Past Surgical History Surgical History: other Additional surgical history: abd sx from tree injury, stent placement x2 - Social History Smoking Status: Former smoker Smokeless Tobacco Status: No Alcohol use: none Drug use: none - Family History Father Living Status: Hx Family Cardiac Disorders: Yes (heart attack) Internal Medicine - H&P: Meds Acetaminophen [Non-Aspirin] 325 mg PO Q8H PRN 12/13/17 [History] Aspirin Enteric Coated [Aspirin EC] 81 mg PO DAILY 12/13/17 [History] Atorvastatin [Lipitor] 40 mg PO HS 12/13/17 [History] Meclizine HCl [Verticalm] 25 mg PO BID PRN 12/13/17 [History] ARIPiprazole [Abilify] 5 mg PO DAILY 04/20/18 [History] Clopidogrel [Plavix] 75 mg PO DAILY 04/20/18 [History] Divalproex (24 HR) [Depakote ER (24 HR)] 250 mg PO HS 04/20/18 [History] Ferrous Sulfate [Iron] 325 mg PO BID 04/20/18 [History] Metoprolol Succinate [Toprol Xl] 25 mg PO DAILY 04/20/18 [History] Multivitamin [One Daily Essential] 1 tab PO DAILY 04/20/18 [History] Pantoprazole Sodium [Protonix] 40 mg PO DAILY 04/20/18 [History] Sennosides/Docusate Sodium [Docusate Sodium-Senna Tablet] 1 tab PO DAILY [History] 3 Allergy/AdvReac Type Severity Reaction Status Date / Time No Known Allergies Allergy Verified 04/20/18 16:26 All Systems PM: A 10-system review of systems was performed and is negative for pertinent findings except as documented above in the HPI. Review of systems: REVIEW OF SYSTEMS: CONSTITUTIONAL: No weight loss, fever, chills, weakness or fatigue. HEENT: Eyes: No visual loss, blurred vision, double vision or yellow sclerae. Ears, Nose, Throat: No hearing loss, sneezing, congestion, runny nose or sore throat. SKIN: No rash or itching. CARDIOVASCULAR: see HPI. RESPIRATORY: No shortness of breath, cough or sputum. GASTROINTESTINAL: No anorexia, nausea, vomiting or diarrhea. No abdominal pain or blood. GENITOURINARY: No dysuria, urgency, or frequency. NEUROLOGICAL: No headache, dizziness, syncope, paralysis, ataxia, numbness or tingling in the extremities. No change in bowel or bladder control. MUSCULOSKELETAL: No muscle, back pain, joint pain or stiffness. HEMATOLOGIC: No anemia, bleeding or bruising. LYMPHATICS: No enlarged nodes. No history of splenectomy. PSYCHIATRIC: No history of depression or anxiety. ENDOCRINOLOGIC: No reports of sweating, cold or heat intolerance. No polyuria or polydipsia. - Constitutional Vitals: Temp Pulse Resp BP Pulse Ox 97.9 F 65 14 96/63 100 04/20/18 16:19 04/20/18 18:47 04/20/18 18:47 04/20/18 18:47 04/20/18 18:47 General appearance: Present: cooperative, A&O X 3, answers questions appropriately Exam: PHYSICAL EXAMINATION: GENERAL APPEARANCE: The patient is alert, oriented and in no acute distress. HEENT: Head is normocephalic. The sinuses are nontender. Pupils are equal and reactive. The nares are patent. Oropharynx clear without lesions. NECK: Supple without lymphadenopathy. HEART: Regular rate and rhythm. LUNGS: No crackles or wheezes are heard. ABDOMEN: Soft, nontender, nondistended with good bowel sounds heard. Inguinal area is normal. EXTREMITIES: Without cyanosis, clubbing or edema. NEUROLOGICAL: Gross nonfocal. SKIN: Warm and dry without any rash. Internal Med - H&P Results - Labs CBC & Chem 7: 04/20/18 16:48 04/20/18 16:48 Labs: Short CBC 04/20/18 Range/Units 16:48 WBC 5.1 (4.3-11.1) K/mcL Hgb 9.5 L (12.9-16.9) g/dL Hct 30.0 L (37.5-50.1) % Plt Count 221 (140-400) K/mcL Neutrophils # 3.2 (1.6-8.9) K/mcL BMP 04/20/18 16:48 Sodium 141 Potassium 4.0 Chloride 108 H Carbon Dioxide 24 BUN 19 Creatinine 0.86 Glucose 141 H Calcium 9.2 Cardiac Enzymes 04/20/18 Range/Units 16:48 Troponin I < 0.03 (< 0.04) ng/mL Liver Function 04/20/18 Range/Units 16:48 Total Bilirubin 0.4 (0.3-1.0) mg/dL Direct Bilirubin 0.2 (0.0-0.2) mg/dL AST 12 L (13-39) Units/L ALT 12 (7-52) Units/L Alkaline Phosphatase 67 (34-104) Units/L Albumin 3.6 (3.5-5.7) g/dL - Impressions ITS Impressions Chest X-Ray 04/20/18 16:31 IMPRESSION: No acute process. D/ / Sreedhar Perez MD / Sreedhar Perez MD Interpreting Provider: Sreedhar Perez MD - Assessment and plan (1) Chest pain Current Visit: Yes Status: Acute Assessment and plan: 72-year-old male with recent history of CAD, status post stent placement, recent history of GI bleeding, aspirin and Plavix was on hold, presented with acute onset of chest pain. Troponin was not first set was negative, however, EKG does show acute ST-T depression on leads V2 to V4. His labs showed hemoglobin 9.4. Pain was relieved by nitroglycerin. - Patient symptoms was suspicious for unstable angina, he received 1 dose aspirin, he currently has no signs of GI bleeding, we will resume home aspirin and Plavix. - Patient hemoglobin 9.4, although it is not clear that anemia contributed to his chest pain, since he is symptomatic, will give 1 unit PRBC, monitor patient chest pain. - Echocardiogram and a stress test ordered. - Cardiology consult. Qualifiers: Chest pain type: unspecified Qualified Code(s): R07.9 - Chest pain, unspecified (2) CAD (coronary artery disease) Current Visit: No Status: Chronic Assessment and plan: Continue home medication including aspirin and Plavix. Qualifiers: Coronary Disease-Associated Artery/Lesion type: [place] artery [place] vs. transplanted heart: [place] heart Associated angina: without angina Qualified Code(s): I25.10 - Atherosclerotic heart disease of [place] coronary artery without angina pectoris (3) Hyperlipidemia Current Visit: No Status: Chronic Assessment and plan: Continue home medication Qualifiers: Hyperlipidemia type: unspecified Qualified Code(s): E78.5 - Hyperlipidemia , unspecified (4) Anemia Current Visit: Yes Status: Acute Assessment and plan: Patient had recent history of GI bleeding, however, he does not have any signs or symptoms of active bleeding at this time. We will check stool for occult blood. His BUN was normal and at baseline, which indicates active GI bleeding was less likely. For that reason, we will resume home aspirin and Plavix, will also transfuse 1 unit PRBC since patient's symptomatic. May consult GI if indicated. Qualifiers: Anemia type: unspecified type Qualified Code(s): D64.9 - Anemia, unspecified (5) DVT prophylaxis Current Visit: Yes Status: Acute Assessment and plan: SCDs. - Time Spent With Patient Total time spent is greater than 50% in coordination of care (as documented) at patient's floor/unit and/or counseling patient: Greater than 35 minutes
[2018-04-20] MEDS ORDERED: Divalproex (24 HR) 250 MG TABLET PO SCH (21:00)
[2018-04-20] MEDS ORDERED: 0.9 % Sodium Chloride 250 ML ONE (21:07)
[2018-04-21 00:48] LABS: Basophils % 0.3 %; Eosinophils % 0.3 %; Hematocrit 29.5 % (37.5-50.1); Hemoglobin 9.5 g/dL (12.9-16.9); Immature Granulocytes % 0.3 % (0-4); Lymphocytes # 0.9 K/mcL (0.6-4.6); Lymphocytes % 14.8 %; Mean Corpuscular HGB Conc 32.2 g/dL (31.6-35.5); Mean Corpuscular Volume 89.9 fL (83.0-100.0); Mean Platelet Volume 9.5 fL (9.4-12.4); Monocytes # 0.4 K/mcL (0.0-1.3); Monocytes % 6.1 %; Neutrophils # 4.9 K/mcL (1.6-8.9); Platelet Count 194 K/mcL (140-400); Red Blood Count 3.28 M/mcL (4.19-5.50); Red Cell Distribution Width 13.8 % (11.5-14.5); Segmented Neutrophils % 78.2 %
[2018-04-21 01:05] LABS: BUN/Creatinine Ratio 25 (6-26); Blood Urea Nitrogen 17 mg/dL (8-23); Calcium 8.7 mg/dL (8.6-10.3); Carbon Dioxide 25 mEq/L (23-29); Chloride 110 mEq/L (98-107); Chol/HDL Ratio 2.4 (0-4.9); Cholesterol 88 mg/dL (< 200); Glucose 136 mg/dL (70-105); HDL Cholesterol 37 mg/dL (40-59); LDL Cholesterol,Calculated 44 mg/dL (0-99); Osmolality,Calculated 292 (280-300); Potassium 4.3 mEq/L (3.5-5.1); Sodium 139 mEq/L (136-145); Triglycerides 37 mg/dL (< 150); eGFR For Non-African Americans > 60 (> 60)
--- NOTE | 2018-04-21 01:33 | Event Note ---
Date of Encounter: 04/21/18 Time of Encounter: 01:30 Notified by RN of + troponin of 1.04; no chest pain per RN. I reviewed his H&P and vitals. Repeat hgb after PRBC transfusion unchanged at 9.5. Patient reportedly has been having GI bleed with bloody stools. I ordered a second unit of PRBC now, transfer to for closer monitoring, and frequent H/H. He may need better IV access/CVC. I asked Dr. Friedman to assess patient and monitor him closely on .
--- NOTE | 2018-04-21 01:51 | Event Note ---
Date of Encounter: 04/21/18 Time of Encounter: 01:48 Patient seen and examined by myself, Dr. Friedman and Dr. Power at approximately 01:45. The patient was resting comfortably and reported complete resolution of chest pain and demonstrated no signs of active bleeding. We will not initiate heparin drip at this time due to concern for GI bleeding. We will continue to monitor the patient with plan for Cardiology intervention in the AM.
[2018-04-21] MEDS ORDERED: 0.9 % Sodium Chloride 250 ML ONE (02:13)
[2018-04-21 06:35] LABS: Hematocrit 31.4 % (37.5-50.1); Hemoglobin 10.2 g/dL (12.9-16.9); Mean Corpuscular HGB Conc 32.5 g/dL (31.6-35.5); Mean Corpuscular Hemoglobin 29.1 pg (28.0-33.3); Mean Corpuscular Volume 89.5 fL (83.0-100.0); Mean Platelet Volume 9.9 fL (9.4-12.4); Platelet Count 208 K/mcL (140-400); Red Blood Count 3.51 M/mcL (4.19-5.50); Red Cell Distribution Width 14.1 % (11.5-14.5)
[2018-04-21 06:36] LABS: Basophils % 0.4 %; Eosinophils % 0.4 %; Immature Granulocytes % 0.3 % (0-4); Lymphocytes # 1.3 K/mcL (0.6-4.6); Lymphocytes % 17.6 %; Monocytes # 0.5 K/mcL (0.0-1.3); Monocytes % 7.3 %; Neutrophils # 5.5 K/mcL (1.6-8.9)
[2018-04-21] MEDS ORDERED: Multivit/Ca/Min/Fe/FA 1 TAB TABLET PO SCH (09:00)
[2018-04-21] MEDS ORDERED: ARIPiprazole 5 MG TABLET PO SCH (09:00)
[2018-04-21] MEDS ORDERED: Aspirin Enteric Coated 81 MG Tablet PO SCH (09:00)
[2018-04-21] MEDS ORDERED: Sennosides/Docusate Sodium TABLET PO SCH (09:00)
--- NOTE | 2018-04-21 09:02 | Internal Med Progress Note ---
<Roland Nails Adrien - Last Filed: 04/21/18 09:58> Hospitalist Progress Note - Encounter Date of Encounter: 04/21/18 Time of Encounter: 09:02 - Subjective Interval History: Mr. Ballard is a 72M with PMH of schizophrenia and CAD s/p multiple stents. He was admitted yesterday for chest pain which started early in the day. He described the pain as pressure radiating up to his jaw. Stated that the pain was similar to previous episodes related to his cardiac disease. CXR in the ED was unremarkable. Initial troponin was negative. However repeat troponins at midnight and 06:00 today were elevated at 1.04 and 6.86 respectively. Cardiology was consulted on admission. There was also concern for a GI bleed since pt reported being worked up at the [facility] for blood bowel movements he had approximately 3 weeks ago. Pt seen and examined today at bedside. No new or acute complaints. States he no longer feels chest pain, but admits to some minor shortness of breath. He denies any abdominal pain, nausea, or vomiting. He states his last bowel movement was yesterday and it was normal with no blood or melena. Denies any fever, chills, headache, numbness, or tingling. - Exam Vitals: Temp Pulse Resp BP Pulse Ox 97.6 F 67 16 97/58 99 04/21/18 06:04 04/21/18 06:04 04/21/18 06:04 04/21/18 06:04 04/21/18 06:04 Exam: Constitutional: well nourished, well developed male. no acute distress Head: Normocephalic, atraumatic Eyes: PERRL, EOMI, conjunctiva pink, sclera anicteric Neck: Supple, trachea midline, no lymphadenopathy Lungs: Clear to auscultation bilaterally. Nonlabored breathing. No wheezes, rales, or rhonchi noted. Cardiac: RRR. No murmurs, clicks, or rubs noted. GI: Abdomen soft, nontender, nondistended. Normoactive bowel sounds Extremities: Warm, radial pulses palpable and symmetrical. No cyanosis, pedal edema, or calf tenderness. Neuro: Alert and oriented 3. No focal deficits. Normal speech. Psych: Flat affect. Answers questions appropriately. Skin: Warm, dry, and intact. - Assessment and Plan (2) CAD (coronary artery disease) Status: Chronic Assessment and Plan: Significant hx with multiple PCIs Continue ASA and Plavix (3) Hyperlipidemia Status: Chronic Assessment and Plan: Continue home Lipitor (4) Chest pain Status: Acute Assessment and Plan: Significant cardiac hx with multiple PCIs since July of this year Initial troponin was negative EKG from ED showed acute ST-T depression on leads V2 to V4. Chest pain was relieved by nitroglycerin. Cardiology is on board Awaiting echo results Continue ASA and Plavix (5) Anemia Status: Acute Assessment and Plan: Recent hx of GI bleeding No evidence of acute bleed at this time. Pt states he had normal BM yesterday. 2 units pRBCs were transferred yesterday H&H stable today at 10.2 and 31.4 respectively Will check stool occult blood Continue ASA and Plavix in setting of chest pain with significant cardiac hx Continue to monitor DVT Prophylaxis: On ASA and plavix AC indication questionable with supposed GI bleed - Time Spent with Patient Total time spent is greater than 50% in coordination of care (as documented) at patient's floor/unit and/or counseling patient: Internal Medicine: Result - Labs CBC & Chem 7: 04/21/18 06:15 04/21/18 00:38 Labs: Short CBC 04/21/18 04/21/18 Range/Units 00:38 06:15 WBC 6.3 7.4 (4.3-11.1) K/mcL Hgb 9.5 L 10.2 L (12.9-16.9) g/dL Hct 29.5 L 31.4 L (37.5-50.1) % Plt Count 194 208 (140-400) K/mcL Neutrophils # 4.9 5.5 (1.6-8.9) K/mcL BMP 04/21/18 00:38 Sodium 139 Potassium 4.3 Chloride 110 H Carbon Dioxide 25 BUN 17 Creatinine 0.67 L Glucose 136 H Calcium 8.7 Cardiac Enzymes 04/21/18 04/21/18 Range/Units 00:38 06:15 Troponin I 1.04 H* 6.86 H* (< 0.04) ng/mL - ABG Interpretation ABG results: PT/INR, D-dimer PT 11.2 Seconds (9.4-12.1) 04/20/18 16:48 Consult Discharge Plan - Plan Instructions: Myocardial Infarction (DC), Chest Pain (DC), Anemia (GEN), Pneumonia (DC) [facility]errals: [facility] [Primary Care Provider] - <Marleen Martínez - Last Filed: 04/21/18 19:14> Hospitalist Progress Note - Encounter Date of Encounter: 04/21/18 - Exam Vitals: Temp Pulse Resp BP Pulse Ox 99.1 F 70 17 90/55 96 04/21/18 15:58 04/21/18 15:58 04/21/18 15:58 04/21/18 15:58 04/21/18 15:58 - Assessment and Plan (1) CAD (coronary artery disease) Status: Chronic (2) Non-STEMI (non-ST elevated myocardial infarction) Status: Acute (3) Hyperlipidemia Status: Chronic (4) Anemia Status: Acute - Time Spent with Patient Total time spent is greater than 50% in coordination of care (as documented) at patient's floor/unit and/or counseling patient: Internal Medicine: Result - Labs CBC & Chem 7: 04/21/18 14:52 04/21/18 00:38 Labs: Short CBC 04/21/18 Range/Units 14:52 WBC 7.4 (4.3-11.1) K/mcL Hgb 10.3 L (12.9-16.9) g/dL Hct 31.9 L (37.5-50.1) % Plt Count 188 (140-400) K/mcL Cardiac Enzymes 04/21/18 Range/Units 13:22 Troponin I 24.43 H* (< 0.04) ng/mL - ABG Interpretation ABG results: PT/INR, D-dimer PT 12.2 Seconds (9.4-12.1) H 04/21/18 14:52 - Attending Attestation I examined this patient and my medical decision-making was reviewed with the Resident Physician Dr. Nails. I agree with the documented findings, disposition and treatment plan as described except to the extent set forth below. Mr. Ballard is a 72 year old male with history of coronary artery disease known occluded RCA receiving collaterals from the left coronary artery and recent PCI to the mid LAD. Patient has moderate disease of his proximal left main nonsignificant on most recent heart catheter a few months ago. Patient developed thrombus in his LAD which was aspirated and eventually received a stent to his mid LAD at [facility]. He happened to have GI bleed / BRBPR 3 weeks ago was seen at [facility] who stopped his ASA and Plavix. Now he presented to ER with chest pain.Got admitted here last night and placed him on cardiac/vascular sonographer. His initial EKG did not reveal any ischemic changes. His Troponin started trending up 0.03, 1.04. 6.86,24.23 respectively. Pt denied any active CP. There was some confusion last night about pt might have GI bleed and he was not started on heparin gtt, matter of fact he was given 2 U PRBC, his Hb stayed stable around 10.2 at his baseline. He was evaluated by Card, and recommend to f/u on afternoon Trop, which went upto 24. Since he is high risk pt, they recommend to transfer the pt to [place] for further care. Pt denied any chest pain what soever, he also confirmed that he did not have any GI bleed / Melena / Bright redblood per rectum in last 3 weeks. So started him on Heparin gtt and transferred to [facility]. Chest: Diminished BS b/l, No wheezing Heart: S1S2+ RRR <Roland Nails - Last Filed: 04/21/18 09:58> (2) CAD (coronary artery disease) Qualifiers: Coronary Disease-Associated Artery/Lesion type: [place] artery [place] vs. transplanted heart: [place] heart Associated angina: without angina Qualified Code(s): I25.10 - Atherosclerotic heart disease of [place] coronary artery without angina pectoris (3) Hyperlipidemia Qualifiers: Hyperlipidemia type: unspecified Qualified Code(s): E78.5 - Hyperlipidemia, unspecified (4) Chest pain Qualifiers: Chest pain type: unspecified Qualified Code(s): R07.9 - Chest pain, unspecified (5) Anemia Qualifiers: Anemia type: unspecified type Qualified Code(s): D64.9 - Anemia, unspecified <Marleen Martínez - Last Filed: 04/21/18 19:14> (1) CAD (coronary artery disease) Qualifiers: Coronary Disease-Associated Artery/Lesion type: [place] artery [place] vs. transplanted heart: [place] heart Associated angina: without angina Qualified Code(s): I25.10 - Atherosclerotic heart disease of [place] coronary artery without angina pectoris (3) Hyperlipidemia Qualifiers: Hyperlipidemia type: unspecified Qualified Code(s): E78.5 - Hyperlipidemia, unspecified (4) Anemia Qualifiers: Anemia type: unspecified type Qualified Code(s): D64.9 - Anemia, unspecified
--- NOTE | 2018-04-21 11:41 | Cardiology Consult Note ---
Date of Encounter: 04/21/18 Time of Encounter: 11:37 Assessment and Plan (1) Non-STEMI (non-ST elevated myocardial infarction) Current Visit: No Status: Acute Initial troponin is negative with recent increase with a peak of 6.8 Left heart cath when cleared from a GI perspective Recent transfusion of 2 units of packed RBCs an improved hemoglobin coinciding with improved symptoms Echocardiogram reveals a preserved ejection fraction with no regional wall motion modalities (2) Anemia Current Visit: Yes Status: Acute Recent episodes of GI bleed and bright red blood per rectum over the last few weeks and during this hospitalization. Received 2 units of packed RBCs with improvement in symptoms. LHC when stable and cleared from a GI bleed perspective Qualifiers: Anemia type: unspecified type Qualified Code(s): D64.9 - Anemia, unspecified Discussion w patient/family: The assessment and plan as outlined above was discussed with the patient and/or family members who expressed understanding and agreement. All questions were answered. Thank you for involving us in the care of your patient. Please call with any questions. History of Present Illness Consult reason: NSTEMI Chief complaint: Chest Pain History of present illness: Mr. Ballard is a 72 year old male with history of coronary artery disease known occluded RCA receiving collaterals from the left coronary artery and recent PCI to the mid LAD. Patient has moderate disease of his proximal left main nonsignificant on most recent heart catheter a few months ago. Patient developed thrombus in his LAD which was aspirated and eventually received a stent to his mid LAD at [facility]. Patient's echocardiogram today reveals an ejection fraction of 60-65% and he is currently resting comfortably denying any chest pain. Recently he has been worked up for GI bleed with a drop in his hemoglobin status post-2 units of packed RBC transfusions yesterday. I am unsure if this is demand ischemia in the setting of his occluded right receiving collaterals from the left coronary artery versus an acute NM. His hemoglobin currently stable and he is asymptomatic. His Plavix has been on hold however after discussion with primary team he has been restarted on Plavix. Patient likely is a candidate for an LHC when stable and cleared from a GI perspective. I do recommend continuing dual and sclerotherapy unless contraindicated/significant GI bleed. Past Med Surg Social Fam HX - Past Medical History Medical history: myocardial infarction, other, coronary artery disease Additional medical history: paranoid personality disorder, neuropathy, dementia with behavioral distrubances Psychiatric history: other, anxiety, panic disorder, PTSD, schizophrenia - Past Surgical History Surgical History: other Additional surgical history: abd sx from tree injury, stent placement x2 - Social History Smoking Status: Former smoker Smokeless Tobacco Status: No Alcohol use: none Drug use: none - Family History Father Living Status: Hx Family Cardiac Disorders: Yes (heart attack) Medications and Allergies Acetaminophen [Non-Aspirin] 325 mg PO Q8H PRN 12/13/17 [History] Aspirin Enteric Coated [Aspirin EC] 81 mg PO DAILY 12/13/17 [History] Atorvastatin [Lipitor] 40 mg PO HS 12/13/17 [History] Meclizine HCl [Verticalm] 25 mg PO BID PRN 12/13/17 [History] ARIPiprazole [Abilify] 5 mg PO DAILY 04/20/18 [History] Clopidogrel [Plavix] 75 mg PO DAILY 04/20/18 [History] Divalproex (24 HR) [Depakote ER (24 HR)] 250 mg PO HS 04/20/18 [History] Ferrous Sulfate [Iron] 325 mg PO BID 04/20/18 [History] Metoprolol Succinate [Toprol Xl] 25 mg PO DAILY 04/20/18 [History] Multivitamin [One Daily Essential] 1 tab PO DAILY 04/20/18 [History] Pantoprazole Sodium [Protonix] 40 mg PO DAILY 04/20/18 [History] Sennosides/Docusate Sodium [Docusate Sodium-Senna Tablet] 1 tab PO DAILY [History] 3 Allergy/AdvReac Type Severity Reaction Status Date / Time No Known Allergies Allergy Verified 04/20/18 16:26 All Systems Review: The remainder of the systems were reviewed and are negative Physical Examination Vital Signs, Last 4 Hours Temp Pulse Resp BP Pulse Ox 04/21/18 11:22 98.3 F 621 16 92/57 98 04/21/18 09:11 100 General: Conversant, No Apparent Distress HEENT: Atraumatic, Normocephaly, Mucus Membranes Moist Neck: No JVD, Normal carotid pulses Cardiac: Reg Rate and Rhythm, Normal S1 and S2, No Murmur Lungs: Normal Breath Sounds, No Wheeze, Rales, Rhonchi Neuro: Alert and responsive, No focal deficits noted Abdomen: Soft, Non-Tender Skin: No rashes noted on visualized skin Musculoskeletal: No Chest Wall Tenderness Extremities: No Clubbing, No Cyanosis, No Edema, Normal Pulses Results 04/21/18 06:15 04/21/18 00:38 Consult Discharge Plan - Plan [facility]errals: [facility] [Primary Care Provider] -
[2018-04-21] MEDS ORDERED: *HR* Heparin 5,000 UNIT/ML VIAL IVP ONE (14:38)
[2018-04-21] MEDS ORDERED: *HR* Heparin 5,000 UNIT/ML VIAL IVP PRN ×2 (14:38)
[2018-04-21] MEDS ORDERED: Heparin 25,000 UNIT/500 ML D5W 25,000 UNIT/500 ML BAG IVC SCH (14:45)
[2018-04-21 15:01] LABS: Hematocrit 31.9 % (37.5-50.1); Hemoglobin 10.3 g/dL (12.9-16.9); Mean Corpuscular HGB Conc 32.3 g/dL (31.6-35.5); Mean Corpuscular Volume 89.9 fL (83.0-100.0); Mean Platelet Volume 9.7 fL (9.4-12.4); Platelet Count 188 K/mcL (140-400); Red Blood Count 3.55 M/mcL (4.19-5.50); Red Cell Distribution Width 13.9 % (11.5-14.5)
[2018-04-21 15:06] LABS: Heparin anti-factor XA UFH 0.03 IU/mL (0.30-0.70)
[2018-04-21 15:07] LABS: INR 1.1; Prothrombin Time 12.2 Seconds (9.4-12.1)
--- NOTE | 2018-04-21 15:14 | Event Note ---
Date of Encounter: 04/21/18 Time of Encounter: 15:09 - Cardiology Event Note Patient with elevated trops now at 24 with no chest pain resting comfortably. LVEF this am 60-65% without RWMA. Apparently patient has been taken off his ASA and plavix x 3 weeks for reason of his GI bleed. Patient is a poor historian but now states chest pain had been ongoing for 3 days prior to arrival. Patients ASA and plavix should be resumed unless contraindicated as well as Heparin. Patient awaiting bed for transport to tertiary care facility. If patient has further chest pain will proceed with a LHC here at [facility]. D/W Dr. Solano in regards to GI consult and recommendations.
[2018-04-21 16:00] VITALS: BP 90/55
--- NOTE | 2018-04-21 16:31 | Discharge Summary ---
<Roland Nails - Last Filed: 04/21/18 16:50> - NOTES TO OUTPATIENT PROVIDER Notes to Outpatient Provider: See hospital course. Was admitted for chest pain and transferred to [place] because of complicated cardiac hx. Orders not resulted at time of discharge: Pending orders 04/21/18 10:11 Occult Blood,Stool [BF] Routine 04/21/18 14:58 EKG [ECG 12 lead ECG] [ECG] Stat Date of Encounter: 04/21/18 Time of Encounter: 16:28 - Discharge Diagnosis (1) Non-STEMI (non-ST elevated myocardial infarction) Priority: Primary Status: Acute Assessment and Plan: Significant cardiac hx with multiple PCIs since July of this year Initial troponin was negative, serial troponins elevated at 1.04 followed by 6.86 Troponin at 12:00 today elevated at 24.43 EKG from ED showed ST depression on leads V2 to V4. Chest pain was relieved by nitroglycerin. Repeat EKG unchanged Cardiology is on board Echo was normal Pt remains asymptomatic with no chest pain or shortness of breath Continue ASA and Plavix Started heparin drip Transfer to [place] due to complicated cardiac hx (2) CAD (coronary artery disease) Priority: Secondary Status: Chronic Assessment and Plan: Significant hx with multiple PCIs Continue ASA and Plavix Qualifiers: Coronary Disease-Associated Artery/Lesion type: [place] artery [place] vs. transplanted heart: [place] heart Associated angina: without angina Qualified Code(s): I25.10 - Atherosclerotic heart disease of [place] coronary artery without angina pectoris (3) Hyperlipidemia Priority: Secondary Status: Chronic Assessment and Plan: Continue home Lipitor Qualifiers: Hyperlipidemia type: unspecified Qualified Code(s): E78.5 - Hyperlipidemia , unspecified (4) Anemia Priority: Secondary Status: Acute Assessment and Plan: Recent hx of GI bleeding No evidence of acute bleed at this time. Pt states he had normal BM yesterday. 2 units pRBCs were transferred yesterday H&H stable today at 10.2 and 31.4 respectively Will check stool occult blood Continue ASA and Plavix in setting of chest pain with significant cardiac hx Continue to monitor Qualifiers: Anemia type: unspecified type Qualified Code(s): D64.9 - Anemia, unspecified Hospital course: Mr. Ballard is a 72M with PMH of schizophrenia and CAD s/p multiple stents. He was admitted yesterday for chest pain which started early in the day. He described the pain as pressure radiating up to his jaw. Stated that the pain was similar to previous episodes related to his cardiac disease. There was also concern for a GI bleed since pt reported being worked up at the OR for blood bowel movements he had approximately 3 weeks ago. Pt reported OR physician told him to stop taking ASA and Plavix. CXR in the ED was unremarkable. Initial troponin was negative. However serial troponins at midnight, and 06:00 today were elevated at 1.04, 6.86 respectively. Cardiology was consulted on admission and elected to hold off on LHC at the time since chest pain had resolved. ASA and Plavix had been resumed starting in ED. Per cardio, decided to obtain another serial troponin. When 12:00 troponin resulted at 24.42, repeat EKG was ordered. Repeat EKG showed a normal sinus rhythm with T wave inversions in leads V1-3 which were reported in ED EKG as well as previous EKGs from 01/01. Pt remained asymptomatic. No chest pain or shortness of breath. Pt stated he had a normal non-bloody and non-melanotic bowel movement last night. Heparin drip was initiated. Discharge discussed with: patient, nurse, vocational rehabilitation consultant - Time Spent with Patient Total time spent providing and/or coordinating discharge services: - Discharge Medications Home Medications: Acetaminophen [Non-Aspirin] 325 mg PO Q8H PRN 12/13/17 [History] Aspirin Enteric Coated [Aspirin EC] 81 mg PO DAILY 12/13/17 [History] Atorvastatin [Lipitor] 40 mg PO HS 12/13/17 [History] Meclizine HCl [Verticalm] 25 mg PO BID PRN 12/13/17 [History] ARIPiprazole [Abilify] 5 mg PO DAILY 04/20/18 [History] Clopidogrel [Plavix] 75 mg PO DAILY 04/20/18 [History] Divalproex (24 HR) [Depakote ER (24 HR)] 250 mg PO HS 04/20/18 [History] Ferrous Sulfate [Iron] 325 mg PO BID 04/20/18 [History] Metoprolol Succinate [Toprol Xl] 25 mg PO DAILY 04/20/18 [History] Multivitamin [One Daily Essential] 1 tab PO DAILY 04/20/18 [History] Pantoprazole Sodium [Protonix] 40 mg PO DAILY 04/20/18 [History] Sennosides/Docusate Sodium [Docusate Sodium-Senna Tablet] 1 tab PO DAILY [History] Heparin 2,000 unit IVP Q6H PRN vial 04/21/18 [Rx] Heparin 4,000 unit IVP Q6HR PRN vial 04/21/18 [Rx] Allergies/Adverse Reactions: 3 Allergy/AdvReac Type Severity Reaction Status Date / Time No Known Allergies Allergy Verified 04/20/18 16:26 Date of admission: 04/21/18 08:35 [facility] care physician: [facility] Discharging clinician: Roland Nails - Constitutional Vitals: Temp Pulse Resp BP Pulse Ox 99.1 F 70 17 90/55 96 04/21/18 15:58 04/21/18 15:58 04/21/18 15:58 04/21/18 15:58 04/21/18 15:58 General appearance: Present: cooperative, A&O X 3, answers questions appropriately Exam: Constitutional: well nourished, well developed male. no acute distress Head: Normocephalic, atraumatic Eyes: PERRL, EOMI, conjunctiva pink, sclera anicteric Neck: Supple, trachea midline, no lymphadenopathy Lungs: Clear to auscultation bilaterally. Nonlabored breathing. No wheezes, rales, or rhonchi noted. Cardiac: RRR. No murmurs, clicks, or rubs noted. GI: Abdomen soft, nontender, nondistended. Normoactive bowel sounds Extremities: Warm, radial pulses palpable and symmetrical. No cyanosis, pedal edema, or calf tenderness. Neuro: Alert and oriented 3. No focal deficits. Normal speech. Psych: Flat affect. Answers questions appropriately. Skin: Warm, dry, and intact. - Patient Status Disposition: Transfer Other Condition: Good Functional capacity at discharge: independent ambulation Overall status at discharge: patient is progressing back to baseline - Discharge Instructions Instructions: Myocardial Infarction (DC), Chest Pain (DC), Anemia (GEN), Pneumonia (DC) Follow [facility] With: [facility] [Primary Care Provider] - - Diet and Activity Activity: as per the cardiac rehab, resume usual activities as tolerated Diet: low fat, low cholesterol, low salt diet <Marleen Martínez - Last Filed: 04/21/18 19:05> Orders not resulted at time of discharge: Pending orders 04/21/18 10:11 Occult Blood,Stool [BF] Routine 04/21/18 14:58 EKG [ECG 12 lead ECG] [ECG] Stat Date of Encounter: 04/21/18 - Discharge Diagnosis (1) CAD (coronary artery disease) Status: Chronic Qualifiers: Coronary Disease-Associated Artery/Lesion type: [place] artery [place] vs. transplanted heart: [place] heart Associated angina: without angina Qualified Code(s): I25.10 - Atherosclerotic heart disease of [place] coronary artery without angina pectoris (2) Non-STEMI (non-ST elevated myocardial infarction) Status: Acute (3) Hyperlipidemia Status: Chronic Qualifiers: Hyperlipidemia type: unspecified Qualified Code(s): E78.5 - Hyperlipidemia , unspecified (4) Anemia Status: Acute Qualifiers: Anemia type: unspecified type Qualified Code(s): D64.9 - Anemia, unspecified Hospital course: Mr. Ballard is a 72 year old male - Time Spent with Patient Total time spent providing and/or coordinating discharge services: Date of admission: 04/21/18 08:35 Primary care physician: PCP [place] - Constitutional Vitals: Temp Pulse Resp BP Pulse Ox 99.1 F 70 17 90/55 96 04/21/18 15:58 04/21/18 15:58 04/21/18 15:58 04/21/18 15:58 04/21/18 15:58 - Attending Attestation I examined this patient and my medical decision-making was reviewed with the Resident Physician Dr. Nails. I agree with the documented findings, disposition and treatment plan as described except to the extent set forth below. Mr. Ballard is a 72 year old male with history of coronary artery disease known occluded RCA receiving collaterals from the left coronary artery and recent PCI to the mid LAD. Patient has moderate disease of his proximal left main nonsignificant on most recent heart catheter a few months ago. Patient developed thrombus in his LAD which was aspirated and eventually received a stent to his mid LAD at [facility]. He happened to have GI bleed / BRBPR 3 weeks ago was seen at [facility] who stopped his ASA and Plavix. Now he presented to ER with chest pain.Got admitted here last night and placed him on hospital monitor. His initial EKG did not reveal any ischemic changes. His Troponin started trending up 0.03, 1.04. 6.86,24.23 respectively. Pt denied any active CP. There was some confusion last night about pt might have GI bleed and he was not started on heparin gtt, matter of fact he was given 2 U PRBC, his Hb stayed stable around 10.2 at his baseline. He was evaluated by Card, and recommend to f/u on afternoon Trop, which went upto 24. Since he is high risk pt, they recommend to transfer the pt to [place] for further care. Pt denied any chest pain what soever, he also confirmed that he did not have any GI bleed / Melena / Bright redblood per rectum in last 3 weeks. So started him on Heparin gtt and transferred to [facility]. Chest: Diminished BS b/l, No wheezing Heart: S1S2+ RRR
[2018-04-21] MEDS ORDERED: Pantoprazole 40 MG VIAL IVP SCH (18:00)
--- NOTE | 2018-04-23 16:50 | Electrocardiograph Report ---
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
--- NOTE | 2018-04-23 16:52 | Electrocardiograph Report ---
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
--- NOTE | 2018-04-24 11:05 | Electrocardiograph Report ---
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
== END 2018-04-21 18:53 | disposition other institution (70) | DRG 281 ==
LOC: EMEROOARM 16:12 → 3BNU 16:12 → 2NNU 04-21 06:15
PROVIDERS: ADMIT Internal Medicine; ATTEND Internal Medicine